=== PATIENT | female | born 1965 | race Hispanic/Latino ===

== ENCOUNTER 2025-04-11 09:28 | Inpatient (IN) | payer OTHER ==
[~2025-04-11] VITALS: Ht 160 cm; Wt 63.8 kg
[~2025-04-11 09:28] MED LIST: HYDROCODON-ACE1 EA10 PO
--- OUTSIDE RECORDS SUMMARY | 2025-04-11 09:36 | XMS ---
PreManage Notification: CATRACHO MARTIN Security Photo Print Specialist Events No recent Security Events currently on file CRITERIA MET - [address] in 90 Days CARE PROVIDERS -, [facility] Dentist: Vault Worker [facility] PHONE: [phone] -Luís- Dentist: Vault Worker [facility] PHONE: [phone] DEBORAH RIOS Nurse Practitioner: Acute Care Current PHONE: [phone] ELSA TUTTLE Nurse Practitioner: Family Schuyler Blanco PHONE: Unknown SRINIVAS TRAORE Nurse Practitioner: Gerontology Current PHONE: Unknown STEPHY OLSON Nurse Practitioner: Family Current PHONE: [phone] SHO VASQUEZ Internal Medicine Current PHONE: Unknown [facility]/Center: [facility] Current WORKERS CL[facility]IC \[facility] ([facility]) <UNAVAIL> PHONE: [phone] Itzel has no Care Guidelines for this patient. E.D. VISIT COUNT (12 MO.) 2 ANSLEY Manley [facility] 1 [facility] TOTAL 4 NOTE: Visits indicate total known visits. ED/UCC VISIT TRACKING (12 MO.) 04/11/2025 09:30 [facility] [place] TYPE: Emergency COMPLAINT: - [facility] DIAGNOSES: - Acute cystitis with hematuria - Pain in unspecified joint - Systemic inflammatory response syndrome (SIRS) of non-infectious origin without acute organ dysfunction - Unspecified abdominal pain - Arm Pain 02/26/2025 02:48 [facility] [place] TYPE: Emergency COMPLAINT: - LT ARM PAIN DIAGNOSES: - Cellulitis of right upper limb - Pain in right arm 02/25/2025 08:25 [facility] [place] TYPE: Emergency DIAGNOSES: - Pain in right shoulder - NUMBNESS INPATIENT VISIT TRACKING (12 MO.) 03/02/2025 16:44 [facility] TYPE: Surgery DIAGNOSES: - Acute cystitis with hematuria - Pain in unspecified joint - Systemic inflammatory response syndrome (SIRS) of non-infectious origin without acute organ dysfunction - Unspecified abdominal pain 02/26/2025 10:54 [facility] TYPE: Internal Medicine DIAGNOSES: - Acute cystitis with hematuria - Acute cystitis without hematuria - Bacteremia - Discitis, unspecified, cervical region - Other stimulant abuse, uncomplicated - Other streptococcal arthritis, right shoulder - Pain in right shoulder - Pain in unspecified joint - Polyarthritis, unspecified - Spinal stenosis, cervical region - Systemic inflammatory response syndrome (SIRS) of non-infectious origin without acute organ dysfunction - Thrombocytopenia, unspecified - Unspecified abdominal pain [email or web address]
[2025-04-11 10:24] LABS: MCH 32.2 PG (25.6-32.2); MCHC 33.8 g/dL (32.2-35.5); MCV 95.1 fL (79.4-94.8); RBC 4.94 M/uL (3.93-5.22)
[2025-04-11] MEDS ORDERED: PIPERACILLIN/TAZOBACTAM 4.5 GM in SODIUM CHLORIDE 0.9% 100 ML IV ONE (10:30)
[2025-04-11] MEDS ORDERED: SODIUM CHLORIDE 0.9% 1,500 ML IV PRN (10:30)
[2025-04-11] MEDS ORDERED: DAPTOmycin 500 MG/10 ML VIAL IV ONE (10:30)
[2025-04-11 10:38] LABS: INR 1.26 (0.80-1.30); PROTIME 15.4 Sec (11.2-14.2)
[2025-04-11 10:42] LABS: ALT (SGPT) 25.0 U/L (14-59); AST (SGOT) 27.0 U/L (15-37); GLOMERULAR FILTRATION RATE,EST 25.0 mL/min (>60); PROTEIN, TOTAL 7.3 g/dL (6.4-8.2); UREA NITROGEN 36.0 mg/dL (7-18)
[2025-04-11] MEDS ORDERED: OXYCODONE HCL5 M3 PO (10:48)
[2025-04-11] MEDS ORDERED: CEFDINIR300 MG PO (10:48)
[2025-04-11 11:06] LABS: CORONAVIRUS COVID-19 AG NEGATIVE (NEGATIVE)
[2025-04-11 11:31] LABS: LACTIC ACID, BLOOD 3.0 mmol/L (0.4-2.0)
[2025-04-11] MEDS ORDERED: SODIUM CHLORIDE 0.9% 1,000 ML IV PRN ×2 (12:00→14:15)
[2025-04-11 12:23] LABS: LACTIC ACID, BLOOD 4.2 mmol/L (0.4-2.0)
[2025-04-11 12:44] LABS: BLOOD/HGB, URINE SMALL (Negative); KETONE, URINE TRACE (Negative); LEUK ESTERASE, URINE NEGATIVE (negative); NITRITE, URINE NEGATIVE (negative)
[2025-04-11 12:49] LABS: EPITHELIAL CELLS, URINE SQUAMOUS 1+ /lpf (0-1+)
[2025-04-11 12:50] LABS: BACTERIA, URINE 1+ /hpf (negative); CASTS, URINE HYALINE 3+ \\lpf; CRYSTALS, URINE CALCIUM OXALATE 1+ (0-1+); REFLEX CULTURE, URINE No (No)
[2025-04-11] MEDS ORDERED: MORPHINE SULFATE 4 MG/ML VIAL IV ONE (14:15)
[2025-04-11] MEDS ORDERED: PANTOPRAZOLE SODIUM 40 MG/10 ML VIAL IV SCH (14:57)
[2025-04-11] MEDS ORDERED: ACETAMINOPHEN 325 MG TAB PO PRN (15:00)
[2025-04-11] MEDS ORDERED: HYDROmorphone HCL 1 MG/ML SYR IV PRN ×2 (15:00→19:30)
[2025-04-11] MEDS ORDERED: LACTATED RINGER'S 1,000 ML IV SCH (15:00)
[2025-04-11] MEDS ORDERED: PROCHLORPERAZINE EDISYLATE 10 MG/2 ML VIAL IV PRN (15:00)
--- NOTE | 2025-04-11 18:39 | NUR ---
REPORT RECIEVED FROM FERNANDO CABRERA VIA PHONE REPORT. PATIENT BROUGHT TO ROOM BY FERNANDO GIRON.
[2025-04-11 18:45] VITALS: BP 115/65
[2025-04-11] MEDS ORDERED: LIDOCAINE 2% VISCOUS 6 ML SYR TOP ONE (19:15)
[2025-04-11] MEDS ORDERED: VANCOMYCIN HCL 125 MG CAP PO SCH (19:15)
[2025-04-11 19:58] VITALS: BP 101/61
[2025-04-11 20:04] VITALS: BP 101/61
--- NOTE | 2025-04-11 20:06 | NUR ---
IN ROOM TO SEE PATIENT, ASSESSMENT COMPLETED. PATIENT REPORTS 6/10 PAIN, ABD DISTENSION AND TTP LUQ AND LLQ. IVF INFUSING WITHOUT DIFFICULTY, SCHEDULED MEDICATIONS ADMINISTERED PER ORDER. PATIENT DENIES NEEDS, CALL LIGHT IN REACH
--- NOTE | 2025-04-11 20:28 | NUR ---
REPORT GIVEN FROM FERNANDO CURTIS. PT LAYIN IN BED WITH EYES OPEN UNDER BLANKETS. A&O, IVF INFUSING WITHOUT DIFFICULTY. NO NEEDS IDENTIFIED AT THIS TIME. CALL LIGHT IN REACH.
--- NOTE | 2025-04-11 20:45 | NUR ---
REPORT GIVEN TO FERNANDO LAWSON. PATIENT TRANSFERRED TO CCU VIA STRETCHER.
[2025-04-11 20:57] VITALS: BP 123/77
[2025-04-11] MEDS ORDERED: HEParin SOD (PORCINE) 5,000 UNIT/ML SDV SUB-Q SCH (21:00)
[2025-04-11] MEDS ORDERED: MELATONIN 3 MG TAB PO PRN (21:00)
[2025-04-11 22:00] VITALS: BP 87/65
[2025-04-11 23:00] VITALS: BP 92/62
[2025-04-12] VITALS (27 sets, daily range): BP systolic 76–113; BP diastolic 50–78
[2025-04-12 00:29] LABS: BLOOD/HGB, URINE NEGATIVE (Negative); KETONE, URINE TRACE (Negative); LEUK ESTERASE, URINE NEGATIVE (negative); NITRITE, URINE NEGATIVE (negative)
[2025-04-12 00:42] LABS: BACTERIA, URINE 2+ /hpf (negative); CRYSTALS, URINE NONE SEEN (0-1+); EPITHELIAL CELLS, URINE SQUAMOUS 1+ /lpf (0-1+)
[2025-04-12 00:43] LABS: REFLEX CULTURE, URINE Yes (No)
[2025-04-12 05:27] LABS: BASOPHILS 0.3 % (0.1-1.2); EOSINOPHILS 0 % (0.7-5.8); LYMPHOCYTES 4.7 % (19.3-51.7); MCH 31.9 PG (25.6-32.2); MCHC 34.0 g/dL (32.2-35.5); MCV 94.0 fL (79.4-94.8); MONOCYTES 8.9 % (4.7-12.5); NEUTROPHILS 84.7 % (34.0-71.1); RBC 4.01 M/uL (3.93-5.22)
[2025-04-12 05:44] LABS: AST (SGOT) 20.0 U/L (15-37); GLOMERULAR FILTRATION RATE,EST 67.0 mL/min (>60); PROTEIN, TOTAL 5.3 g/dL (6.4-8.2); UREA NITROGEN 28.0 mg/dL (7-18)
[2025-04-12 06:07] LABS: ALT (SGPT) 19.0 U/L (14-59)
--- NOTE | 2025-04-12 06:16 | NUR ---
This RN spoke w/ Dr. Lemus with pt updates. Pt afebrile, tachy w/ HR 100's, soft BPs, MAP ~ 65. WBC 32.9, Lactic acid 1.1. Pt UOP < 30ml/hr, 1L bolus of LR ordered per Dr. Lemus.
[2025-04-12] MEDS ORDERED: LACTATED RINGER'S 1,000 ML IV ONE ×2 (06:30→21:00)
--- NOTE | 2025-04-12 06:52 | NUR ---
NOTIFIED OF CRITICAL WBC, THAT ARE UNCHANGED FROM LAST LAB DRAW AND THAT LACTIC IS NOW 1.1, ALSO NOTIFIED THAT CAME IN AND SEEN PATIENT LAST NIGHT.
--- NOTE | 2025-04-12 09:03 | NUR ---
IN TO SEE PATIENT AND PLAN OF CARE BEING DISCUSSED. LAZO EMPTIED FOR 100 ML AT THIS TIME. 1 L LR BOLUS FINISHED AT 0730. PT REPORTS FEELING BETTER OVERALL BUT STILL TIRED. ABD IS SLIGHTLY DISTENDED, SOFT, TENDER TO TOUCH X4 QUADS.
[2025-04-12] MEDS ORDERED: PHARMACY RENAL DOSE ADJUSTMENT 1 DOSE MISC PO SCH (12:00)
--- NOTE | 2025-04-12 15:31 | NUR ---
DR. ARIZA IN TO SEE PATIENT AROUND 1400 AND PLAN OF CARE DISCUSSED. PER DR. ARIZA, PATIENT SHOWING SIGNS OF IMPROVEMENT. PT CAN HAVE MINIMAL CLEAR LIQUIDS AT THIS TIME. PT'S FAMILY IN ROOM AND ALSO GIVEN UPDATE. PT HAS BEEN ABLE TO TAKE PO VANCO W/O DIFFICULTY.
--- NOTE | 2025-04-12 16:57 | NUR ---
PATIENT HELPED UP TO CHAIR AFTER GIVEN A BED BATH. PT HAD LOOSE LIQUID BM UNDER HER BUT ONLY A SMALL AMOUNT. PT GIVEN 1 MG PRN DILAUDID FOR 4/10 PAIN. PATIENT'S AND FRIENDS IN ROOM. NEW IV PLACED IN RIGHT FOREARM AFTER LEFT AC HURTING PATIENT UPON FLUSHING. IVF CONTINUE AT 125 ML/HR AND URINE OUTPUT HAS AVERAGED 35 ML/HR. PT ALLOWED TO HAVE SMALL AMOUNTS OF CLEAR LIQUIDS AND TOLERATING THIS WITHOUT NAUSEA OR PAIN. PT RESTING IN CHAIR NOW VISITING WITH FRIENDS AND HAS CALL LIGHT WITHIN REACH. WILL CONTINUE TO MONITOR.
[2025-04-12] MEDS ORDERED: BENZONATATE200 MG PO (17:04)
--- NOTE | 2025-04-12 17:06 | NUR ---
MED REC COMPLETE
--- NOTE | 2025-04-12 20:58 | NUR ---
This RN spoke w/ Dr. Larkin regarding pt UOP 5ml this hour, soft BP, 83/50 MAP 62, T 99.1F. 1L bolus LR ordered now per MD. If MAP drops below 65 again, draw stat lactic acid, await result before giving an additional 1L bolud of LR. If lactic acid is elevated, report result to Dr. Larkin.
[2025-04-13] VITALS (21 sets, daily range): BP systolic 83–107; BP diastolic 47–66
[2025-04-13 05:14] LABS: BASOPHILS 0.2 % (0.1-1.2); EOSINOPHILS 0.4 % (0.7-5.8); LYMPHOCYTES 6.1 % (19.3-51.7); MCH 32.1 PG (25.6-32.2); MCHC 33.9 g/dL (32.2-35.5); MCV 94.7 fL (79.4-94.8); MONOCYTES 8.2 % (4.7-12.5); NEUTROPHILS 83.1 % (34.0-71.1); RBC 3.40 M/uL (3.93-5.22)
[2025-04-13 05:39] LABS: ALT (SGPT) 11.0 U/L (14-59); AST (SGOT) 20.0 U/L (15-37); GLOMERULAR FILTRATION RATE,EST 102.0 mL/min (>60); PROTEIN, TOTAL 4.6 g/dL (6.4-8.2); UREA NITROGEN 17.0 mg/dL (7-18)
[2025-04-13 05:44] LABS: LACTIC ACID, BLOOD 0.8 mmol/L (0.4-2.0)
--- NOTE | 2025-04-13 09:00 | NUR ---
PT INCONTENT OF STOOL, CHANGED AND THEN UP TO THE COMMODE HAD MORE STOOL AND PLACED ATTENDS, PT INTO WORK WITH PT AND DR VELA INTO SEE PT ALSO AT THIS TIME. PT CURRENTLY IN BED CALL LIGHT WITHIN REACH, LINDA SIBLEY AND SEVEN-UP GIVE. KPT STATES "I FEEL MUCH BETTER TODAY, MY PAIN IS GONE".
--- NOTE | 2025-04-13 11:16 | NUR ---
PT APPEARS TO BE SLEEPING AT THIS TIME.
--- NOTE | 2025-04-13 12:10 | NUR ---
PT UP IN THE CHAIR AT THIS TIME. FEELING BETTER, NO BM NOTED AT THIS TIME.
--- NOTE | 2025-04-13 13:00 | NUR ---
PT UP IN THE CHAIR FOR LUNCH, PT EDUCATION GIVEN AND INTO VISIT AT THIS TIME. ANSWERED QUESTION FOR . THEN PT WANTS TO GO BACK TO BED.
--- NOTE | 2025-04-13 13:51 | CONS ---
[facility] [address], [place] [address] Signed DATE OF CONSULTATION: REASON FOR ADMISSION: Severe C difficile colitis. HISTORY OF PRESENT ILLNESS: This 59-year-old woman is an amazingly poor historian. It is ultimately discovered that she had a septic joint in the right shoulder, for which she began antibiotic therapy several weeks ago. She has been seen in [facility], and elsewhere apparently and somewhere along the way also had a urinary tract infection. She lives in [place] it is noted. She does note that her initial presentation was in February where she had pain in her right shoulder. Evaluation at [facility] was undertaken and on February 23, 6 weeks ago, underwent right shoulder operation of some type and was admitted to the hospital for 3 weeks of antibiotics. She went to rehab facility for prolonged course of IV antibiotics and was discharged early with oral antibiotics. She does describe a history of urinary tract infection (but notably denies any pneumaturia). Her rehab facility was [facility] in [place], [place]. She denies or at least does not know of her own primary care provider. She presented to the emergency room and was evaluated by Dr. Mercado today. She is complaining of body aches, weakness, fatigue and shortness of breath. She had some abdominal pain as well. Evaluation in the emergency room by Dr. Mercado noted her to have an elevated lactic acid level of 3.6, a urinalysis which seems relatively normal, urine bacteria 1+. Subsequent lactic acid after administration of fluids increased to 4.2, later down to 3.0. White count was quite astounding at 32.98 with the hematocrit of 47, creatinine elevated at 2.22, and platelets of 226,000. Liver enzymes were normal. CT scan of the abdomen showed pancolitis. Given the extent of her antibiotic therapy over the past several weeks, C difficile was assessed and found to be positive. She recently was noted on CT scan to have a nonocclusive thrombus of the right ovarian vein. She was admitted directly to the intensive care unit for C difficile enterocolitis with oral vancomycin and intravenous Flagyl. Consultation was undertaken given the severity of her apparent C difficile colitis. PAST MEDICAL HISTORY: Notable for substance abuse issues in the past. I am uncertain just what medications or drugs were being used. SOCIAL HISTORY: She is and lives in [place], [place]. Electronically Signed By: WILLIAM ARIZA MD 04/13/25 1351 PATIENT NAME: CATRACHO MARTIN CONSULTATION DATE OF : 61 REPORT #: [id number] PHYSICIAN: WILLIAM ARIZA MD PCP: NO PRIMARY CARE PHYSICIAN REPORT IS CONFIDENTIAL AND NOT TO BE RELEASED WITHOUT AUTHORIZATION [facility] [address], [place] [address] Signed REVIEW OF SYSTEMS: Denies any chest pain or shortness of breath at this time. Has had no hemoptysis or blood per rectum and no hematemesis. PHYSICAL EXAMINATION: GENERAL: This is a pleasant woman who essentially does not look systemically toxic. VITAL SIGNS: Her most recent temperature at 2056 was 98.0, pulse 114, blood pressure 123/77, O2 saturation 96% on room air. More recently, blood pressure is 87/65 with a pulse of 117. HEAD AND NECK: She does not look particularly systemically toxic at this time. Trachea is midline. CHEST: Clear. HEART: Regular without murmur. ABDOMEN: Does show mild diffuse tenderness. There are no peritoneal signs proper. EXTREMITIES: Show no clubbing, cyanosis, or edema. LAB STUDIES: Earlier in the day showed a white count of 32.96. I have reviewed her CT scan in detail. ASSESSMENT: The patient has Clostridium difficile enterocolitis, which is a significant and serious diagnosis. I did discuss all this with her. She is under current appropriate medical therapy, but if there is no sign of improvement or particularly if there is worsening as manifested by persistent hypotension, lactic acidosis, tachycardia, and generalized systemic toxicity, an operative intervention would be offered. Two basic operative approaches might be appropriate in her case. Firstly, would be total colectomy with end-ileostomy to later have takedown of the ileostomy to become an ileoproctostomy. Such an operation is rather extensive and is often associated with high mortality based on the underlying systemic toxicity of the colitis. A benefit of course is that the offending organism will have been effectively eliminated. Another option is a diverting loop ileostomy with infusion perpetually through the efferent limb of vancomycin. This appropriate if the more extensive operation of colectomoy is deemed unlikely to be tolerated. IT would be considered as well to avoid extenstive resection of colon as well. . I discussed all this in detail with the patient with use of the whiteboard and so on. PLAN: Electronically Signed By: WILLIAM ARIZA MD 04/13/25 1351 PATIENT NAME: CATRACHO MARTIN CONSULTATION DATE OF : 61 REPORT #: [id number] PHYSICIAN: WILLIAM ARIZA MD PCP: NO PRIMARY CARE PHYSICIAN REPORT IS CONFIDENTIAL AND NOT TO BE RELEASED WITHOUT AUTHORIZATION [address] [address] Signed We will continue to monitor her therapy and response to it over the next 12 to 24 hours. If the problem does not reverse itself reasonably, then at that time, stronger consideration for operative intervention would be made. MD NEIL Puga/OMER /[id number] cc: Dr. Rogelio Larkin Copies: ~ Electronically Signed By: WILLIAM ARIZA MD 04/13/25 1351 PATIENT NAME: CATRACHO MARTIN CONSULTATION DATE OF : 61 REPORT #: [id number] PHYSICIAN: WILLIAM ARIZA MD PCP: NO PRIMARY CARE PHYSICIAN REPORT IS CONFIDENTIAL AND NOT TO BE RELEASED WITHOUT AUTHORIZATION
--- NOTE | 2025-04-13 14:02 | NUR ---
DR ARIZA INTO SEE PT AT THIS TIME.
--- NOTE | 2025-04-13 14:58 | NUR ---
PT BACK TO BED AND IS RESTING AT THIS TIME.
--- NOTE | 2025-04-13 16:00 | NUR ---
PT WITY EYES CLOED ASSESSMENT COMPLETED, DENIES PAIN AT THIS TI9ME WHEN ASK IF SHE IS COMFORTABLE. "YES" 1700 PT UP FOR DINNER, CLEAR LIQUIDS TRAY.
--- NOTE | 2025-04-13 18:14 | NUR ---
ppt finished clear liquid tray and then brushed teeth washed her face and decided it was time to go to bed. Pt states she feels better, but not back to normal. Helped pt turn off tv and call light within reach and found tv remote and placed on bedside stand.
--- NOTE | 2025-04-13 19:30 | NUR ---
RECEIVED REPORT FROM DAY SHIFT. PT RESTING WITH EYES CLOSED, ALLOWED PT TO REST AT THIS TIME. CALL LIGHT WITHIN REACH.
--- NOTE | 2025-04-13 20:30 | NUR ---
PT CALL LIGHT ON, PT APPEARS IN PAIN/TEARFUL AND HOLDING ABDOMEN. PT REPORTS 4/10 PAIN ALL OVER STOMACH, DENIES NAUSEA. PRN MEDS GIVEN - SEE MAR. SCDS PLACED ON PATIENT, FRESH ICE WATER PROVIDED. VS STABLE, AFEBRILE. DENIES ANY OTHER NEEDS. CALL LIGHT WITHIN REACH.
--- NOTE | 2025-04-13 22:46 | NUR ---
PT SLEEPING, IV ABX STARTED. IV FLUIDS INFUSING ORDERED. PT STATES PAIN IMPROVED TO 2/10, STATES SHE IS COMFORTABLE, DENIES NAUSEA. LAZO CATH DRAINED, 300ML CATHY URINE. DENIES ANY NEEDS, CALL LIGHT WITHIN REACH, PT TAKING SIPS OF WATER, WHICH IS FRESH AT BEDSIDE.
[2025-04-14] VITALS (21 sets, daily range): BP systolic 81–107; BP diastolic 51–76
[2025-04-14 05:48] LABS: BASOPHILS 0.2 % (0.1-1.2); EOSINOPHILS 1.0 % (0.7-5.8); LYMPHOCYTES 11.0 % (19.3-51.7); MCH 31.7 PG (25.6-32.2); MCHC 33.4 g/dL (32.2-35.5); MCV 94.7 fL (79.4-94.8); MONOCYTES 10.5 % (4.7-12.5); NEUTROPHILS 75.0 % (34.0-71.1); RBC 3.41 M/uL (3.93-5.22)
[2025-04-14 06:09] LABS: GLOMERULAR FILTRATION RATE,EST 113.0 mL/min (>60); UREA NITROGEN 7.0 mg/dL (7-18)
--- NOTE | 2025-04-14 06:23 | NUR ---
PT RESTING IN BED, IV FLUID BAG CHANGED, IV ABX INFUSING. PT REQUESTING SOMETHING FOR 3/10 PAIN, PRN TYLENOL GIVEN. ASSISTED PATIENT TO TURN ONTO (L) SIDE, PT STATES SHE FEELS LIKES SHE IS IN HEAVEN NOW. LAZO EMPTIED. ALL PT CARE NEEDS MET, CALL LIGHT WITHIN REACH. SCDS REMAIN ON PATIENT. PT ALLOWED TO SLEEP.
--- NOTE | 2025-04-14 08:06 | NUR ---
BREAKFAST TRAY PROVIDED AND VITAL SIGNS TAKEN. PT RESTING, DENIES ANY NEEDS AT THIS TIME. CALL LIGHT IN REACH
[2025-04-14] MEDS ORDERED: POTASSIUM CHLORIDE 10 MEQ TABCR PO ONE (08:15)
[2025-04-14] MEDS ORDERED: POTASSIUM CHLORIDE 40 MEQ,LIDOCAINE HCL 1% 40 MG in DEXTROSE 5% 250 ML IV ONE (08:30)
[2025-04-14] MEDS ORDERED: LACTATED RINGER'S 1,000 ML IV ONE (08:45)
--- NOTE | 2025-04-14 08:57 | NUR ---
PATIENT RESTING IN BED AT THIS TIME. 1 L BOLUS OF LR STARTED. PT ABLE TOT DENISHA PO MEDS W/O DIFFICULTY. PT STATES HER MOM IS COMING TO VISIT TODAY. HYPERACTIVE BOWEL SOUNDS. CLEAR YELLOW URINE IN LAZO. PAIN IS 3/10.
--- NOTE | 2025-04-14 10:05 | NUR ---
ASSISTED PT FROM CHAIR TO BED. APPROX 50% OF LIQUID BREAKFAST CONSUMED. PT TOLERATED WELL, DENIES PAIN.
--- NOTE | 2025-04-14 11:28 | NUR ---
PATIENT'S FAMILY IN ROOM AND VISITING WITH PATIENT. ISOLATION PRECAUTIONS EXPLAINED TO PATIENT. OT IN ROOM WELL AND PT HAS ALREADY BEEN IN ROOM WORKING WITH HER. PT WAS UP TO CHAIR EARLIER. BP STILL MILDLY LOW- 89/58 (68).
--- NOTE | 2025-04-14 12:02 | NUR ---
Spoke with Martha. She is tearful. States she had surgery and required a stay in [facility] for 3 weeks, then to [facility] in [place] for 2 weeks. Has not really felt well since surgery. She lives with her spouse and adult children. She does not use any DME, except a shower chair. Has one step into the home. Spouse is completing the data entry manager. Adult children also help. Pt plans on dc to home when medically cleared. Pt is tearful as she feels she has been ill for such a lengthy time. Denies financial or safety concerns. Home with family when medically cleared.
--- NOTE | 2025-04-14 12:42 | NUR ---
UR CLINICAL REVIEW: MCG-PER MCG REVIEW MEET INPT FOR COLITIS WITH NEED FOR IV ABX, IVF AND SERIAL LABS [facility] INPT 04/11/25 @ 4603 ORDER MATCHES REG CLINICALS FAXED TO [facility] FOR AUTH REVIEW DISCHARGE TO HOME WHEN MEDICALLY STABLE 04/15/25 DC
[2025-04-14] MEDS ORDERED: ALBUMIN HUMAN 25% 100 ML BTL IV ONE (16:15)
--- NOTE | 2025-04-14 20:27 | NUR ---
PATIENT CRYING. MOANING GRIMACING, REPORTING PAIN 4/10, DILAUDID PRN ADMINISTERED WELL PO TYLENOL. PATIENT RESP RATE 34/MIN
--- NOTE | 2025-04-14 20:48 | NUR ---
PATIENT ASSESSMENT COMPLETE. PATIENT HAD LARGE MUCUS/GREEN/BROWN MIX STOOL. PATIENT HAS GOOD BED MOBILITY SHE IS ABLE TO TURN FOR CLEANING AND CHANGEING, LAZO CARE PROVIDED. PATIENT REPORTS SHE IS READY FOR SLEEP. REPOSITIONED WITH PILLOWS. SHE REPORTS SHE IS NOW COMFORTABLE. CALL LIGHT REACH, SCDS ON.
[2025-04-15] VITALS (20 sets, daily range): BP systolic 11–118; BP diastolic 48–101
--- NOTE | 2025-04-15 01:35 | NUR ---
PATIENT ALERT TO VOICE FOR SCHEDULED VACOMYCIN DOSE. ASSESSMENT COMPLETE, NO NEW CONCERNS. PATIENT HAS NO REQUESTS AT THIS TIME. SHE HAS Q.S. URINE OUT.
--- NOTE | 2025-04-15 02:40 | NUR ---
CALLED TO NOTIFY OF PATIENTS B/P SOFT LAST TAKEN WITH MAP OF 63. PATIENT IS PRODUCING Q.S. URINE OUT. NEW ORDER FOR 500ML BOLUS AT THIS TIME. SAID HE WANTS HER MAP TO BE >60, "60-65 IS FINE."
[2025-04-15] MEDS ORDERED: LACTATED RINGER'S 500 ML IV ONE (02:45)
[2025-04-15 06:28] LABS: BASOPHILS 0.3 % (0.1-1.2); EOSINOPHILS 2.0 % (0.7-5.8); LYMPHOCYTES 14.8 % (19.3-51.7); MCH 31.5 PG (25.6-32.2); MCHC 32.5 g/dL (32.2-35.5); MCV 96.8 fL (79.4-94.8); MONOCYTES 14.2 % (4.7-12.5); NEUTROPHILS 65.8 % (34.0-71.1); RBC 3.46 M/uL (3.93-5.22)
[2025-04-15 06:38] LABS: GLOMERULAR FILTRATION RATE,EST 109.0 mL/min (>60); UREA NITROGEN 3.0 mg/dL (7-18)
--- NOTE | 2025-04-15 07:03 | NUR ---
PATIENT HAS SLEPT WELL OVER SHIFT IN BETWEEN CARES, SHE HAS HAD THREE LARGE BM. SHE HAD SIGNIFICANT PAIN WITH CRYING, GROANING, AND RESP RATE 34/MIN, DILAUDID PRN ADMINISTERED WELL TYLENOL PRN. SHE HAD LOW B/P CALLED AND WAS ORDER TO GIVE 500ML BOLUS, THIS IS DONE, B/P IMPROVED. PATIENT URINE IS NOTED TO BE DARK TEA COLOR THIS AM, ALSO NOTED SIGNIFICANT EDEMA FROM ANKLES TO HIPS AND LABIA/PELVIC AREA. SHE IS UP TO RECLINER THIS AM AND BED LINENS CHANGED. PROVIDED ACTIVITY BOOKS FOR HER AT RECLINER SIDE.
--- NOTE | 2025-04-15 09:38 | NUR ---
Spoke with Martha. She still is not feeling well. She does feel her diarrhea has slowed down. No needs from DM today.
[2025-04-15] MEDS ORDERED: ALBUMIN HUMAN 25% 100 ML BTL IV ONE (14:15)
--- NOTE | 2025-04-15 19:45 | NUR ---
ROUDNING ON PATIENT, BROUGHT ICE WATER FOR HER APPLE JUICE FROM DINNER, FRESH ICE WATER. PATIENT'S SPOUSE AT BEDSIDE VISITING. PATIENT ADMINISTERED HS MEDICATIONS AND PRN TYLENOL FOR BASE PAIN MANAGEMENT. PATIENT REPOSITIONED AND BOOSTED UP IN BED. SHE REPORTS NO OTHER NEEDS AT THIS TIME.
--- NOTE | 2025-04-15 21:04 | NUR ---
PATIENT SPOUSE LEFT FOR THE NIGHT, PATIENT CALLED. THIS RN INTO ROOM TO ASSIST PATIENT IN CLEAN UP AFTER LARGE SOFT/LIQUID BM. PATIENT ASKED TO HAVE LIGHTS AND TV TURNED OFF SHE REPORTS NO SIGNIFICANT PAIN AT THIS TIME. SHE SAID SHE IS TIRED AND IS READY TO SLEEP. EDUCATION ON MEDICATIONS GIVEN TO PATIENT AND HER SPOUSE IN REFERENCE TO VANCOMYCIN AND ILLNESS, PROGRESSION OF CARE PLAN. NO FURTHER REQUESTS/QUESTIONS/NEEDS AT THIS TIME. CALL LIGHT IN REACH.
--- NOTE | 2025-04-15 22:00 | NUR ---
PATIENT RESTING IN BED, EYES CLOSED, RESPIRATIONS REGULAR. PATIENT ALERT TO RN IN ROOM TO ADMINISTER SCHEDULED ABX. SHE REPORTS NO NEEDS AT THIS TIME.
[2025-04-16] VITALS (12 sets, daily range): BP systolic 81–110; BP diastolic 49–71
--- NOTE | 2025-04-16 01:19 | NUR ---
PATIENT CALLED NURSES STATION TO REPORT HAVING HAD BM, THIS RN INTO PATIENTS ROOM TO ASSIST WITH CLEANING AND CHANGING. PATIENT HAS NO FURTHER REQUESTS OR NEEDS AT THIS TIME.
--- NOTE | 2025-04-16 05:30 | NUR ---
PATIENT CALLED FOR ASSISTANCE WITH INCONT, STOOL. THIS RN INTO ASSIST, ASSESSMENT COMPLETE. NO NEW CONCERNS THIS AM.
--- NOTE | 2025-04-16 05:38 | NUR ---
CALLED FOR AM LAB ORDERS. ORDERS RECEIVED FOR CMP, CBC AND MAGNESIUM LABS.
[2025-04-16 05:54] LABS: BASOPHILS 0.8 % (0.1-1.2); EOSINOPHILS 2.9 % (0.7-5.8); LYMPHOCYTES 23.3 % (19.3-51.7); MCH 31.8 PG (25.6-32.2); MCHC 32.9 g/dL (32.2-35.5); MCV 96.6 fL (79.4-94.8); MONOCYTES 16.1 % (4.7-12.5); NEUTROPHILS 52.6 % (34.0-71.1); RBC 3.55 M/uL (3.93-5.22)
[2025-04-16 06:09] LABS: ALT (SGPT) 8.0 U/L (14-59); AST (SGOT) 24.0 U/L (15-37); GLOMERULAR FILTRATION RATE,EST 110.0 mL/min (>60); PROTEIN, TOTAL 4.2 g/dL (6.4-8.2); UREA NITROGEN 2.0 mg/dL (7-18)
[2025-04-16] MEDS ORDERED: POTASSIUM CHLORIDE 10 MEQ TABCR PO ONE (06:30)
[2025-04-16] MEDS ORDERED: MAGNESIUM SULFATE 2 GM/50 ML BAG IV ONE (06:30)
--- NOTE | 2025-04-16 06:31 | NUR ---
NEW ORDERS FROM FOR POTASSIUM AND MAGNESIUM REPLACEMENT THIS AM.
--- NOTE | 2025-04-16 08:14 | NUR ---
AM ASSESSMENT COMPLETE - PT WAKES EASILY UPON ENTERING ROOM. DENIES PAIN OR NAUSEA AT THIS TIME. ATTENDS C/D/I. LAZO DRAINING CONC URINE. EDEMA NOTED BLE, PT STATES IMPROVING. BOWEL TONES ACTIVE. PT WISHES FOR ADVANCE IN DIET. CALL LIGHT IN REACH.
--- NOTE | 2025-04-16 09:14 | NUR ---
PT USES CALL LIGHT TO REPORT INC OF STOOL. PT ABLE TO ROLL SIDE TO SIDE TO CLEAN. NEW ATTENDS PLACED, LAZO CARE COMPLETE. PT RESTING IN BED WATCHING TV. AGREES WITH PLAN TO GET UP TO CHAIR LATER THIS AM.
--- NOTE | 2025-04-16 09:39 | NUR ---
UR DC REVIEW: NO BARRIERS TO DC NOTED DISCHARGE TO HOME WITH FAMILY WHEN STABLE ADD PER MD 04/17/25 NO ACTIONS REQUIRED
[2025-04-16] MEDS ORDERED: LACTOBACILLUS RHAMNOSUS GG 1 EACH CAP PO SCH (10:12)
--- NOTE | 2025-04-16 10:13 | NUR ---
PT USES CALL LIGHT TO REPORT HEARTBURN THAT STARTED AFTER BREAKFAST. CALL TO MD - ORDER ENTERED FOR MALOX AND PROBIOTIC.
[2025-04-16] MEDS ORDERED: MAGNESIUM HYDROXIDE/AL HYDROX 30 ML CUP PO PRN (10:15)
--- NOTE | 2025-04-16 11:05 | NUR ---
Spoke with Martha. She denies needs. Feeling better today. States she is having less BMS. OT asked if we can get access to her SNF orders from [facility]. Pt would like to have therapy on her shoulder. I called and left a message with Sapna at [facility] to see if they could send their orders from her surgeon for therapy.
--- NOTE | 2025-04-16 11:30 | NUR ---
PT UP TO BED SIDE CHAIR WITH OT. TO BATHROOM TO PREFORM ADL'S. 2 LIQUID BM - REMAINS GREEN/YELLOW LIQUID. CLEAN ATTENDS PLACED. PT TOLERATING MOVEMENT WITH SOME FATIGUE, BALANCE STEADY, STANDBY ASSIST.
--- NOTE | 2025-04-16 12:55 | NUR ---
PT TOLERATING CRACKERS WITH CLEAR LIQ TRAY - VS STABLE. URINE OUTPUT POOR IN LAZO CATH, CONCENTRATED.
--- NOTE | 2025-04-16 13:34 | NUR ---
PT BACK TO BED FROM CHAIR, STANDBY ASSIST WITH LINES/TUBES. CALL LIGHT IN REACH. FRESH WATER AND JUICE PROVIDED.
--- NOTE | 2025-04-16 15:15 | NUR ---
PT INC OF STOOL IN ATTENDS. CLEANED AND NEW ATTENDS ON WITH PT ABLE TO ROLL SELF IN BED SIDE TO SIDE. URINE OUTPUT REMAINS POOR 180 OUT THIS SHIFT . ATTEMPT TO CALL MADE.
[2025-04-16] MEDS ORDERED: ALBUMIN HUMAN 25% 100 ML BTL IV ONE (17:00)
[2025-04-16] MEDS ORDERED: FUROSEMIDE 20 MG/2 ML VIAL IV ONE (17:00)
--- NOTE | 2025-04-16 17:09 | NUR ---
PT POOR URINE OUTPUT AND EDEMA DISCUSSED WITH MD AT RN STATION. ORDERS ENTERED FOR ALBUMIN AND LASIX.
[2025-04-16 20:19] LABS: GLOMERULAR FILTRATION RATE,EST 108.0 mL/min (>60); UREA NITROGEN 1.0 mg/dL (7-18)
[2025-04-17] VITALS (8 sets, daily range): BP systolic 93–106; BP diastolic 56–67
--- NOTE | 2025-04-17 07:03 | NUR ---
REPORT RECEIVED FROM RECREATIONAL AIDE FERNANDO LAWSON.
--- NOTE | 2025-04-17 07:24 | NUR ---
PATIENT IS LYING IN BED WITH EYES CLOSED AND RESPIRATIONS ARE EVEN AND UNLABORED. HEART MONITOR REMAINS IN PLACE AND THE PATIENT IS IN SINUS RHYTHM. CALL LIGHT AND PERSONAL BELONGINGS ARE WITHIN REACH.
--- NOTE | 2025-04-17 09:10 | NUR ---
PATIENT IS LYING IN BED WITH EYES OPEN AND RESPIRATIONS ARE EVEN AND UNLABORED. BREAKFAST TRAY REMOVED AT THIS TIME. BLINDS IN THE ROOM OPENED. FULL ASSESSMENT COMPLETE AND DOCUMENTED IN THE CHART. LAZO CATHETER WITH CONCENTRATED URINE NOTED IN THE LAZO BAG. PATIENT IS ALERT AND ORIENTED TIMES FOUR. IV SITE FLUSHED WITH 10 ML NORMAL SALINE AND IS SALINE LOCKED. IV DRESSING IS CLEAN, DRY, AND INTACT. PATIENT WITH NO COMPLAINTS OF PAIN OR NAUSEA. PATIENT IS ON A LOW FIBER DIET. BOWEL TONES ARE ACTIVE IN ALL FOUR QUADRANTS. ABDOMEN IS FIRM AND DISTENDED. PATIENT IS ON ROOM AIR AND LUNG SOUNDS ARE CLEAR THROUGHOUT. CARDIACF WITH NORMAL S1 AND S2 ON AUSCULTATION. PATIENT IS ON THE HEART MONITOR AND IN SINUS RHYTHM. 1+ PITTING EDEMA NOTED IN THE BLE. PATIENT STATED NO FURTHER NEEDS AT THIS TIME. GRAPE JUICE PROVIDED PER PATIENT REPORT. CALL LIGHT AND PERSONAL BELONGINGS ARE WITHIN REACH.
--- NOTE | 2025-04-17 09:50 | NUR ---
PT NOT AVAILABLE FOR VISIT. PROVIDED PRAYER.
--- NOTE | 2025-04-17 10:10 | NUR ---
PT CALLED, REPORTING SHE HAD HAD A BOWEL MOVEMENT. THIS RN AND CLOTILDE RN IN ROOM TO ASSIST PT. PT REPORTED TO FERNANDO MABRY, THAT SHE IS UNABLE TO TELL WHEN SHE IS GOING TO HAVE A BM. REDNESS NOTED TO PT'S PERIAREA AND LOWER PART OF BUTTOCKS; BARRIER CREAM APPLIED. CATHETER CARE COMPLETE AT THIS TIME. BED BATH COMPLETED AND SHOWER CAP APPLIED. PT MOVED TO CHAIR AND PERSONAL BELONGINGS PUT WITHIN REACH. COMPLETE BED CHANGE DONE AT THIS TIME. PT STATED NO FURTHER NEEDS AT THIS TIME. CALL LIGHT AND PERSONAL BELONGINGS ARE WITHIN REACH.
[2025-04-17 10:38] LABS: BASOPHILS 0.4 % (0.1-1.2); EOSINOPHILS 1.7 % (0.7-5.8); LYMPHOCYTES 19.0 % (19.3-51.7); MCH 32.1 PG (25.6-32.2); MCHC 33.2 g/dL (32.2-35.5); MCV 96.9 fL (79.4-94.8); MONOCYTES 16.2 % (4.7-12.5); NEUTROPHILS 60.4 % (34.0-71.1); RBC 3.92 M/uL (3.93-5.22)
[2025-04-17 10:57] LABS: ALT (SGPT) 15.0 U/L (14-59); AST (SGOT) 45.0 U/L (15-37); GLOMERULAR FILTRATION RATE,EST 106.0 mL/min (>60); PROTEIN, TOTAL 4.5 g/dL (6.4-8.2); UREA NITROGEN 2.0 mg/dL (7-18)
--- NOTE | 2025-04-17 11:30 | NUR ---
PT CALLED REPORTING SHE HAD HAD A BOWEL MOVEMENT IN CHAIR. PT CLEANED AND MOVED TO BED. FRESH BARRIER CREAM APPLIED, AND CATHETER CARE COMPLETED AT THIS TIME. PT STATED NO FURTHER NEEDS AT THIS TIME. CALL LIGHT AND PERSONAL BELONGINGS ARE WITHIN REACH.
--- NOTE | 2025-04-17 12:13 | NUR ---
FULL ASSESSMENT COMPLETE AND DOCUMENTED IN CHART. REDDENED AREA AND SPOTTED RASH NOTED TO SHAHEEN AREA AND UPPER THIGHS. BARRIER CREAM APPLIED. SCAR ON ABDOMEN NOTED WELL. NO OTHER CHANGES FROM 0800 ASSESSMENT. PT DENIES ANY NEEDS AT THIS TIME. CALL LIGHT AND PERSONAL BELONGINGS WITHIN REACH. LUNCH TRAY DELIVERED AT THIS TIME.
--- NOTE | 2025-04-17 12:25 | NUR ---
NOTIFIED OF THE POTASSIUM OF 3.3. GAVE TELEPHONE ORDER FOR 40 MEQ PO KCL- ONCE. GAVE ORDER FOR LABS AND A MAGNESIUM AT 1400. WITH NO FURTHER ORDERS AT THIS TIME. CALL ENDED.
[2025-04-17] MEDS ORDERED: POTASSIUM CHLORIDE 10 MEQ TABCR PO ONE (12:30)
--- NOTE | 2025-04-17 13:21 | NUR ---
NOTIFIED OF PATIENT URINE OUTPUT BEING 125 ML FOR THIS RN SHIFT AND CONCENTRATED. MD HAVE VERBAL ORDER AT THIS TIME FOR A 500 ML BOLUS ONCE. MD WITH NO FURTHER ORDERS AT THIS TIME.
[2025-04-17] MEDS ORDERED: LACTATED RINGER'S 1,000 ML IV ONE (13:30)
--- NOTE | 2025-04-17 14:00 | NUR ---
IV LR BOLUS STARTED AT THIS TIME. IV SITE REMAINS CLEAN, DRY, AND INTACT. PATIENT CLEANED UP FROM HAVING A BM. SHAHEEN CARE AND LAZO CARE COMPLETE AT THIS TIME. PATIENT TOLERATED WELL. PATIENT REFUSED PHYSICAL THERAPY . PATIENT STATED NO FURTHER NEEDS AT THIS TIME. CALL LIGHT AND PERSONAL BELONGINGS ARE WITHIN REACH.
[2025-04-17 15:02] LABS: ALT (SGPT) 16.0 U/L (14-59); AST (SGOT) 45.0 U/L (15-37); GLOMERULAR FILTRATION RATE,EST 107.0 mL/min (>60); PROTEIN, TOTAL 4.5 g/dL (6.4-8.2); UREA NITROGEN 2.0 mg/dL (7-18)
--- NOTE | 2025-04-17 15:12 | NUR ---
PT LAYING IN BED WITH EYES CLOSED, REPORTING 4/10 ABDOMINAL PAIN. PAIN MEDICATIONS ADMINISTERED PER THE EMAR. ASSESSMENT COMPLETE AND DOCUMENTED IN CHART. OTHER THAN REPORTED PAIN, NO CHANGES FROM PREVIOUS ASSESSMENTS. INTAKE AND OUTPUT DOCUMENTED IN CHART. WARM BLANKET PROVIDED. PT DENIES ANY OTHER NEEDS AT THIS TIME. CALL LIGHT AND PERSONAL BELONGINGS ARE WITHIN REACH.
--- NOTE | 2025-04-17 16:11 | NUR ---
PT LAYING IN BED WITH EYES CLOSED. RR EVEN AND UNLABORED. CALL LIGHT AND PERSONAL BELONGINGS ARE WITHIN REACH.
--- NOTE | 2025-04-17 17:00 | NUR ---
PT CALLED REPORTING A BOWEL MOVEMENT. THIS RN AND CLOTILDE RN IN ROOM TO CLEAN PATIENT UP. FRESH CHUX, BRIEF AND BARRIER CREAM APPLIED. DINNER TRAY AND FRESH ICE WATER DELIVERED AT THIS TIME. PERICARE COMPLETE. CALL LIGHT AND PERSONAL BELONGINGS ARE WITHIN REACH; PT DENIES ANY OTHER NEEDS.
--- NOTE | 2025-04-17 18:32 | NUR ---
PATIENT HAD A BOWEL MOVEMENT AT THIS TIME. PATIENT WITH NEW BRIEF AND CHUX IN PLACE. SHAHEEN CARE AND LAZO CARE COMPLETE AT THIS TIME. BARRIER OINTMENT IN PLACE. PATIENT BLINDS CLOSED AND THE LIGHTS SHUT OFF PER PATIENT REQUEST. PATIENT IS WATCHING TV. PATIENT STATED NO FURTHER NEEDS AT THIS TIME. CALL LIGHT AND PERSONAL BELONGINGS ARE WITHIN REACH.
--- NOTE | 2025-04-17 19:30 | NUR ---
SHIFT REPORT RECEIVED. PATIENT'S IN TO VISIT HER. PATIENT RESTING IN BED. WARM BLANKET PROVIDED. PATIENT DENIED ANY OTHER NEEDS.
--- NOTE | 2025-04-17 20:30 | NUR ---
PATIENT PROVIDED PRN PAIN MEDS FOR 5/10 ABD PAIN. PATIENT DENIED NAUSEA. ABD IS MILDLY DISTENDED AND TENDER. BOWEL SOUNDS ACTIVE. PATIENT INCONTINENT OF STOOL. ALL SHAHEEN CARE DONE AND LAZO CARE DONE. BARRIER CREAM APPLIED TO REDNESS NOTED IN SHAHEEN AREA. PATIENT HAS GENERALIZED EDEMA IN HIPS/THIGHS AND +2 ON ELBERT LOWER EXTREMITIES. PATIENT REPORTS EDEMA HAS IMPROVED SOME. PATIENT REPORTS TENDERNESS AT IV SITE WHEN FLUSHED. NO SIGN OF INFILTRATION OR REDNESS. IV SITE SL. PATIENT ASSISTED TO REPOSITION IN BED; WHICH SHE DOES MOSTLY HERSELF. LIGHTS DIMMED PER REQUEST. CALL LIGHT IN REACH.
--- NOTE | 2025-04-17 22:00 | NUR ---
SECONDARY IV SITE ESTABLISHED AND IV ABX STARTED BY BETTY KING AND CHELLE KING.
[2025-04-18] VITALS (13 sets, daily range): BP systolic 84–114; BP diastolic 53–70
--- NOTE | 2025-04-18 00:41 | NUR ---
PATIENT APPEARS RESTFUL IN BED. EYES CLOSED. CALL LIGHT IN REACH.
--- NOTE | 2025-04-18 06:26 | NUR ---
PATIENT INCONTINENT OF SMALL AMOUNT OF LOOSE STOOL. PATIENT ABLE TO ASSIST IN ROLLING FOR ATTENDS CHANGED. REDNESS NOTED THROUGHOUT SHAHEEN AREA. BARRIER CREAM APPLIED. LAZO CARE DONE. PATIENT ABLE TO REPOSITION HERSELF UP IN BED. FRESH ICE WATER PROVIDED. PATIENT OFFERED TO GET UP TO CHAIR WHICH SHE DECLINED. LAB IN FOR MORNING DRAW. CALL LIGHT IN REACH.
[2025-04-18 06:29] LABS: BASOPHILS 0.4 % (0.1-1.2); EOSINOPHILS 1.6 % (0.7-5.8); LYMPHOCYTES 14.2 % (19.3-51.7); MCH 31.4 PG (25.6-32.2); MCHC 32.7 g/dL (32.2-35.5); MCV 96.1 fL (79.4-94.8); MONOCYTES 12.5 % (4.7-12.5); NEUTROPHILS 69.5 % (34.0-71.1); RBC 3.85 M/uL (3.93-5.22)
[2025-04-18 06:39] LABS: GLOMERULAR FILTRATION RATE,EST 111.0 mL/min (>60); UREA NITROGEN 5.0 mg/dL (7-18)
--- NOTE | 2025-04-18 06:49 | NUR ---
PATIENT UPDATE PROVIDED TO
--- NOTE | 2025-04-18 08:15 | NUR ---
REPORT RECEIVED FROM KASSY KING. PT RESTING IN BED, EYES CLOSED, RESP EVEN AND UNLABORED, ON CONT CARDIAC MONITORING.
--- NOTE | 2025-04-18 09:19 | NUR ---
SLEEPING AT THIS TIME. PER NURSES, PATIENT'S STOOL FREQUENCY HAS DECREASED. CURRENTLY SHE CONTINUES TO PLAN TO DC TO HOME WITH FAMILY ASSISTING HER WHEN SHE IS MEDICALLY READY
--- NOTE | 2025-04-18 10:24 | NUR ---
DR ARIZA IN TO SEE PT. PT THEN INC OF STOOL, ATTENDS CHANGED AND PT ASSITED UP TO CHAIR FOR BREAKFAST.
--- NOTE | 2025-04-18 10:45 | NUR ---
DR CH IN TO SAY PT IS NOW TRANSFERRED TO MED SURG STATUS.
--- NOTE | 2025-04-18 11:00 | NUR ---
PT HAS FINISHED EATING HER BREAKFAST OF CHEERIOS AND IS NOW READY TO TAKE A WALK. PT WAS ASSISTED INTO BATHROOM TO BRUSH HER TEETH AND WASH HER FACE AND BACK WAS WASHED. PT THEN SAT ON TOILET TO HAVE ANOTHER BOWEL MOVEMENT. SHE WAS THEN CLEANED UP AND PHYSICAL THERAPY TOOK HER OUT TO WORK WITH HER, PT THEN WALKED DOWN TO HER NEW ROOM ON [facility].
--- NOTE | 2025-04-18 11:58 | NUR ---
REPORT GIVEN TO GEOVANY KING.
--- NOTE | 2025-04-18 12:01 | NUR ---
RECIEVED REPORT FROM CCU RNJACEK. PT IS RESTING IN BED WITH EYES CLOSED, RR EVEN AND UNLABORED. CALL LIGHT IS WITHIN REACH.
--- NOTE | 2025-04-18 12:40 | NUR ---
PT LAYING IN BED SUPINE. FULL ASSESSMENT COMPLETE AND DOCUMENTED IN CHART. NORMAL S1, S2 ASCULTATED. LUNGS CLEAR THROUGHOUT. LAZO CATHETER DRAINING CONCENTRATED, CATHY URINE. PT ALERT AND ORIENTED TIMES 4, REPORTS PAIN 4/10, REQUESTING PAIN MEDICATION. PAIN MEDS ADMINISTERED PER THE EMAR. 1+ PITTING EDEMA NOTED TO BLE. PT DENIES ANY NUMBNESS, TINGLING, OR NAUSEA. ASSISTED PT WITH SETTING UP LUNCH TRAY. PT DENIES ANY FURTHER NEEDS AT HTIS TIME. CALL LIGHT AND PERSONAL BELONGINGS ARE WITHIN REACH.
--- NOTE | 2025-04-18 13:42 | NUR ---
PT LAYING IN BED WITH EYES OPEN. CALL LIGHT AND PERSONAL BELONGINGS ARE WITHIN REACH. RR EVEN AND UNLABORED.
--- NOTE | 2025-04-18 14:10 | NUR ---
PT CALLED REPORTING A BOWEL MOVEMENT. THIS RN AND FERNANDO MABRY IN ROOM TO ASSIST PT. FRESH BRIEF AND BARRIER CREAM APPLIED. VS AND INTAKE AND OUTPUT VALUES DOCUMENTED IN CHART. LAZO CARE COMPLETE AT THIS TIME. PT STATED NO FURTHER NEEDS. CALL LIGHT AND PERSONAL BELONGINGS ARE WITHIN REACH.
--- NOTE | 2025-04-18 16:08 | NUR ---
FOCUSED ASSESSMENTS COMPLETE. NO CHANGES FROM MORNING ASSESSMENT. PT DENIES ANY NEEDS AT THIS TIME.
--- NOTE | 2025-04-18 17:41 | NUR ---
PT SITTING UP IN BED WITH DINNER TRAY, TALKING ON PHONE. CALL LIGHT AND PERSONAL BELONGINGS ARE WITHIN REACH.
--- NOTE | 2025-04-18 18:06 | NUR ---
PT SITTING IN BED WITH HEAD ELEVATED, WATCHING TV. RR EVEN AND UNLABORED. CALL LIGHT AND PERSONAL BELONGINGS ARE WITHIN REACH.
--- NOTE | 2025-04-18 19:46 | NUR ---
REPORT RECEIVED FROM DAY SHIFT RN. PATIENT RESTING IN BED ON BACK WITH EYES CLOSED. RESPIRATIONS EVEN AND UNLABORED. CALL LIGHT IN REACH.
--- NOTE | 2025-04-18 22:12 | NUR ---
CALL LIGHT ANSWERED. PATIENT STATED SHE HAD AN INCONTINENT BM. NEW BEDDING, BREIF, AND PRESTON PLACED AFTER PERICARE PROVIDED. LAZO CATH CARE PROVIDED PER PROTOCOL. SCHEDULED AND PRN MEDICATIONS ADMINSITERED. PATIENT REPOSITIONED IN BED. PATIENT DENIES FURTHER NEEDS AT THIS TIME. BED ALARM ON. CALL LIGHT IN REACH.
[2025-04-19] VITALS (8 sets, daily range): BP systolic 100–108; BP diastolic 51–77
--- NOTE | 2025-04-19 00:44 | NUR ---
PATIENT RESTING IN BED ON BACK WITH EYES CLOSED. RESPIRATIONS EVEN AND UNLABORED. CALL LIGHT IN REACH. BED ALARM ON.
--- NOTE | 2025-04-19 02:12 | NUR ---
ROUNDED ON PATIENT, RESTING IN BED WITH EYES CLOSED, RESPIRATIONS EVEN AND UNLABORED, NO NEEDS IDENTIFIED AT THIS TIME. CALL LIGHT IN REACH.
--- NOTE | 2025-04-19 02:41 | NUR ---
PATIENT RESTING IN BED ON BACK. SCHEDULED MEDICATIONS ADMINISTERED. PATIENT DENIES FURTHER NEEDS AT THIS TIME. CALL LIGHT IN REACH.
--- NOTE | 2025-04-19 04:53 | NUR ---
IN PATIENT ROOM, PERICARE PERFORMED DUE TO INCONTINENCE, NEW BRIEF, CHUX, BARRIER CREAM APPLIED. PATIENT ABLE TO ASSIST IN TURNING IN BED. PATIENTS LEGS ELEVATED WITH PILLOWS. BED ALARM SET, NO OTHER NEEDS AT THIS TIME. CALL LIGHT IN REACH.
--- NOTE | 2025-04-19 06:33 | NUR ---
PATIENT RESTING IN BED. SCHEDULED IV ABX INFUSING PER ORDER. PATIENT DENIES FURTHER NEEDS. CALL LIGHT IN REACH.
[2025-04-19 06:51] LABS: BASOPHILS 0.3 % (0.1-1.2); EOSINOPHILS 1.4 % (0.7-5.8); LYMPHOCYTES 12.4 % (19.3-51.7); MCH 31.5 PG (25.6-32.2); MCHC 33.0 g/dL (32.2-35.5); MCV 95.5 fL (79.4-94.8); MONOCYTES 11.0 % (4.7-12.5); NEUTROPHILS 74.0 % (34.0-71.1); RBC 3.75 M/uL (3.93-5.22)
[2025-04-19 07:01] LABS: GLOMERULAR FILTRATION RATE,EST 115.0 mL/min (>60); UREA NITROGEN 7.0 mg/dL (7-18)
--- NOTE | 2025-04-19 07:15 | NUR ---
RECIEVED REPORT FROM FERNANDO MENDOZA, AND NIDHI RN. PT IS LAYING IN BED WITH EYES CLOSED. RR EVEN AND UNLABORED. CALL LIGHT AND PERSONAL BELONGINGS ARE WITHIN REACH.
--- NOTE | 2025-04-19 08:02 | NUR ---
PATIENT IN CHAIR AT THIS TIME. CAGE OPERATOR CHARTED HOURLY ROUNDS, PATIENT HAD SOILED BRIEF, NEW BRIEF AND NEW LINENS PROVIDED BY THIS CAGE OPERATOR. CAGE OPERATOR ASSISTED PATIENT TO BEDSIDE COMMODE AND THEN TO THE CHAIR. CALL LIGHT WITHIN REACH, NO FURTHER NEEDS AT THIS TIME
--- NOTE | 2025-04-19 08:45 | NUR ---
PT LAYING IN BED WITH EYES OPEN, WATCHING TV. RR EVEN AND UNLABORED. CALL LIGHT AND PERSONAL BELONGINGS ARE WITHIN REACH.
--- NOTE | 2025-04-19 09:13 | NUR ---
THIS COMPLIANCE PROGRAM MANAGER ENTERED ROOM FOR HOURLY ROUNDS. PATIENT TOLD COMPLIANCE PROGRAM MANAGER THAT SHE "NEEDED TO BE CLEANED UP BECAUSE SHE HAD A BOWEL MOVEMENT A WHILE AGO" COMPLIANCE PROGRAM MANAGER ASKED PATIENT IF SHE CALLED, PATIENT STATED "NO I FIGURED THAT SOMEONE WOULD COME IN AT SOME POINT THIS MORNING." THIS COMPLIANCE PROGRAM MANAGER TOLD PATIENT THAT SHE NEEDS TO CALL IF SHE HAS A BOWEL MOVEMENT IN HER BRIEF SO WE CAN ASSIST PATIENT IN GETTING CLEANED UP. FERNANDO MABRY NOTIFIED. CALL LIGHT WITHIN REACH, NO FURTHER NEEDS.
[2025-04-19] MEDS ORDERED: POTASSIUM CHLORIDE 10 MEQ TABCR PO ONE (09:30)
--- NOTE | 2025-04-19 09:45 | NUR ---
0900 MEDICATIONS ADMINISTERED PER THE EMAR. VS AND INTAKE AND OUTPUT VALUES TAKEN AND DOCUMENTED IN CHART. NORMAL S1, S2 AUSCULTATED. LUNGS CLEAR THROUGHOUT. 2+ PITTING EDEMA NOTED TO BLE. IV FLUSHED WITH 10 ML NORMAL SALINE. DRESSING IS CLEAN, DRY AND INTACT. LAZO CATHETER D/C'D PER MD ORDER. UPON ENTERING ROOM, FERNANDO MABRY, REMOVED BRIEF AND FOUND LIQUID STOOL. WHEN ASKED BY FERNANDO MABRY, ABOUT KNOWING IF SHE HAD HAD A BM, PT STATED, "NO". PT REEDUCATED ABOUT FREQUENT TOILETING AND PRESSING CALL LIGHT WHEN FEELING THE URGE TO VOID OR HAVE A BM. SKIN NOTED TO BE VERY RED ON BUTTOCKS, GROIN, AND PERIAREA. NO FURTHER NEEDS. CALL LIGHT AND PERSONAL BELONGINGS ARE WITHIN REACH.
--- NOTE | 2025-04-19 10:10 | NUR ---
PT CALLED STATING SHE NEEDED TO USE BSC. THIS RN IN TO ASSIST PT. HELPED PT MOVE FROM EDGE OF BED TO BSC, WHERE PT BOTH VOIDED AND HAD A BM. NEW PULL-UP PLACED ON PT. PT BACK IN BED WITH CALL LIGHT AND PERSONAL BELONGINGS WITHIN REACH.
--- NOTE | 2025-04-19 11:26 | NUR ---
IN TO ADMINISTER MEDICATIONS PER THE EMAR. PT SITTING IN BED WITH HEAD ELEVATED. CALL LIGHT AND PERSONAL BELONGINGS ARE WITHIN REACH.
--- NOTE | 2025-04-19 12:28 | NUR ---
PATIENT IN CHAIR AT THIS TIME. DRAFTING INSTRUCTOR WENT INTO ROOM FOR HOURLY ROUNDS, PATIENT STATED "I NEED TO GET UP" THIS DRAFTING INSTRUCTOR WENT INTO PATIENTS ROOM. PATIENT SAT ON EDGE OF BED TO MOVE TO CHAIR, THEN PATIENT STATED "WELL I AM ALREADY GOING" THIS DRAFTING INSTRUCTOR HAD TO INSTRUCT PATIENT TO MOVE TO BEDSIDE COMMODE. PATIENT THEN WAITED FOR DRAFTING INSTRUCTOR TO PULL BRIEF DOWN SO PATIENT COULD SIT ON COMMODE. THIS DRAFTING INSTRUCTOR PROVIDED PATIENT WITH SHAHEEN CARE AND PROVIDED NEW BRIEF. CALL LIGHT WITHIN REACH, NO FURTHER NEEDS.
--- NOTE | 2025-04-19 12:28 | NUR ---
PT UP IN CHAIR EATING LUNCH. CALL LIGHT AND PERSONAL BELONGINGS ARE WITHIN REACH.
--- NOTE | 2025-04-19 14:19 | NUR ---
AND SON VISITING WITH PT AT THIS TIME. RR EVEN AND UNLABORED. CALL LIGHT AND PERSONAL BELONGINGS ARE WITHIN REACH.
--- NOTE | 2025-04-19 15:42 | NUR ---
PT LAYING IN BED WITH EYES OPEN. RR EVEN AND UNLABORED. CALL LIGHT AND PERSONAL BELONGINGS ARE WITHIN REACH.
--- NOTE | 2025-04-19 16:22 | NUR ---
PT RESTING IN BED WITH EYES CLOSED. RR EVEN AND UNLABORED. CALL LIGHT AND PERSONAL BELONGINGS ARE WITHIN REACH.
--- NOTE | 2025-04-19 17:41 | NUR ---
PT CALLED STATING, "I NEED MY NURSES." CLOTILDE, RN, AND THIS RN TO PT'S ROOM TO SEE WHAT THEY NEEDED. UPON OPENING DOOR, PT STATED, "I NEED CHANGED." THIS RN ASKED PT IF SHE KNEW WHEN SHE NEEDED TO USE THE BATHROOM AT HOME. PT STATED, "WELL YEAH!" THIS RN ASKED PT WHAT HER BATHROOM ROUTINE AT HOME WAS LIKE. PT REPLIED, "WELL YOU GO THROUGH THE DOOR, AND THERE'S A COUNTER, A SINK, A SHOWER, AND THEN THE TOILET." THIS RN CLARIFIED QUESTION. PT STATED, "BUT THIS WASN'T HAPPENING AT HOME." PT CLEANED, FRESH BARRIER OINTMENT AND NEW BRIEF APPLIED. PT SET UP WITH DINNER TRAY. NO NEEDS AT THIS TIME. PT ADVISED THAT SOMEONE WOULD BE IN AROUND 1800 TO GET HER TO THE BSC. PT STATED NO FURTHER NEEDS AT THIS TIME. CALL LIGHT AND PERSONAL BELONGINGS ARE WITHIN REACH.
--- NOTE | 2025-04-19 17:56 | NUR ---
PATIENT IN BED AT THIS TIME. TIRE REPAIR MECHANIC CHARTED I&O'S, TIRE REPAIR MECHANIC ALSO ASSISTED PATIENT TO BEDSIDE COMMODE. CALL LIGHT WITHIN REACH, NO FURTHER NEEDS.
--- NOTE | 2025-04-19 18:09 | NUR ---
PT RESTING IN BED WITH EYES CLOSED. TURNED OFF LIGHTS, PER PT REQUEST. CALL LIGHT AND PERSONAL BELONGINGS ARE WITHIN REACH.
--- NOTE | 2025-04-19 18:31 | NUR ---
NOTIFIED OF PATIENT VOIDING 200-300 ML TOTAL FOR THE DAY. THIS IS NOT A CHANGE FROM THE LAST TWO DAYS. STATED NO NEW ORDERS AT THIS TIME. CALL ENDED.
--- NOTE | 2025-04-19 19:10 | NUR ---
REPORT RECIEVED FROM FERNANDO MABRY AND FERNANDO ARMENTA. PATIENT RESTING IN BED AND IS WITHOUT ANY NEEDS AT THIS TIME. CALL LIGHT AND PERSONAL BELONGINGS ARE WITHIN REACH.
--- NOTE | 2025-04-19 19:45 | NUR ---
DR CH AT BEDSIDE. MD WITH VERBAL ORDER FOR 500ML NS BOLUS ONCE. MD WITH NO FURTHER ORDERS AT THIS TIME.
[2025-04-19] MEDS ORDERED: SODIUM CHLORIDE 0.9% 500 ML IV PRN (20:00)
--- NOTE | 2025-04-19 20:05 | NUR ---
PATIENT MEDICATED PER EMAR. PATIENT ASSESSMENT COMPLETED. PATIENT IV FLUSHED WITH 10ML OF NS, DRESSING IS INTACT, IV FLUIDS INFUSING PER ORDER. PATIENT UP TO BEDSIDE COMMODE WITH ONE PERSON ASSIST. PATIENT WITH ONE MEDIUM LOOSE/ JELLY LIKE BM. PATIENT BACK IN BED. FRESH ICE WATER PROVIDED. VITAL SIGNS TAKEN AND ARE STABLE. PATIENT WITHOUT FURTHER NEEDS AT THIS TIME. CALL LIGHT AND PERSONAL BELONGINGS ARE WITHIN REACH.
--- NOTE | 2025-04-19 21:01 | NUR ---
PATIENT MEDICATED PER EMAR. PATIENT RESTING IN BED AND IS WITHOUT FURTHER NEEDS AT THIS TIME. CALL LIGHT AND PERSONAL BELONGINGS ARE WITHIN REACH.
--- NOTE | 2025-04-19 21:39 | NUR ---
PATIENT IV ABX COMPLETED. IV FLUSHED WITH 10ML OF NS, DRESSING IS INTACT. IV IS SALINE LOCKED. PATIENT WITHOUT FURTHER NEEDS AT THIS TIME. CALL LIGHT AND PERSONAL BELONGINGS ARE WITHIN REACH.
--- NOTE | 2025-04-19 22:22 | NUR ---
PATIENT RESTING IN BED ON HER LEFT SIDE WITH HER EYES CLOSED. EVEN AND UNLABORED RESPIRATIONS NOTED. CALL LIGHT AND PERSONAL BELONGINGS ARE WITHIN REACH.
--- NOTE | 2025-04-19 23:42 | NUR ---
PATIENT RESTING IN BED ON HER BACK WITH HER EYES CLOSED. EVEN AND UNLABORED RESPIRATIONS NOTED. CALL LIGHT AND PERSONAL BELONGINGS ARE WITHIN REACH.
[2025-04-20] VITALS (9 sets, daily range): BP systolic 91–106; BP diastolic 51–61
--- NOTE | 2025-04-20 00:54 | NUR ---
PATIENT RANG CALL LIGHT AND ASKED FOR ASSITANCE IN GETTING UP TO USE THE RESTROOM. PATIENT HAD A BOWEL MOVEMENT IN CAMODE AND PATIENT WAS SAFELY TRANSFERED OVER TO BED. CALL LIGHT WITHIN REACH, NO FURTHER NEEDS AT THIS TIME.
--- NOTE | 2025-04-20 01:16 | NUR ---
Scheduled vanco po admin to patient. Patient reports lessened loose stools. Patient denies needs at this time. Call light within pt reach.
--- NOTE | 2025-04-20 06:06 | NUR ---
[facility] [place] Patient continues to have loose stools. Pt reports she slept well last night. Fresh water provided.
[2025-04-20] MEDS ORDERED: POTASSIUM CHLORIDE 10 MEQ TABCR PO ONE (06:15)
--- NOTE | 2025-04-20 06:56 | NUR ---
REPORT RECEIVED FROM RECRUITMENT OFFICER FERNANDO CHACKO. PATIENT IS LYING IN BED WITH EYES CLOSED AND RESPIRATIONS ARE EVEN AND UNLABORED. CALL LIGHT AND PERSONAL BELONGINGS ARE WITHIN REACH.
--- NOTE | 2025-04-20 07:36 | NUR ---
PATIENT IS LYING IN BED WITH EYES CLOSED AND RESPIRATIONS ARE EVEN AND UNLABORED. CALL LIGHT AND PERSONAL BELONGINGS ARE WITHIN REACH.
--- NOTE | 2025-04-20 08:45 | NUR ---
PT AMBULATED TO TOILET THEN WASHED HANDS AND FACE AND PERFORMED ORAL CARE WITH STAND BY ASSIST. THIS PUMP OPERATOR [employer] ALSO CHANGED PT'S BRIEF, AND TOOK OUT TRASH. GOT PT FRESH ICE WATER REQUESTED.
--- NOTE | 2025-04-20 08:54 | NUR ---
PT REPORTS NO PAIN OTHER THAN A SHOULDER RECENTLY OPPERATED ON - CLEANED UP ROOM, TOOK OUT TRASH. GOT PT FRESH ICE WATER AND A CUP OF ICE WITH SPOON REQUESTED. CALL LIGHT WITHIN REACH AND PT SITTING UP IN BED WATCHING TV. PT REPORTS NEEDING NOTHING MORE AT THIS TIME.
--- NOTE | 2025-04-20 09:00 | NUR ---
AND THIS RN ROUNDED ON THE PATIENT AT THIS TIME. MD STATED THAT THE PATIENT WILL LEAVE TOMORROW. MD NOTIFIED OF NO LAB ORDERS FOR THIS MORNING. MD REPORTED LABS WERE COMPLETED THIS MORNING. NO NEW ORDERS AT THIS TIME. RN NOTIFIED TO PATIENT THAT JAMESON ALLEN WOULD COME PACK TO ASSIST HER WITH A SHOWER. CALL LIGHT AND PERSONAL BELONGINGS ARE WITHIN REACH.
--- NOTE | 2025-04-20 10:17 | NUR ---
PATIENT IS LYING IN BED WITH EYES OPEN AND RESPIRATIONS ARE EVEN AND UNLABORED. PATIENT IS WATCHING TV. CALL LIGHT AND PERSONAL BELONGINGS ARE WITHIN REACH.
--- NOTE | 2025-04-20 11:07 | NUR ---
PATIENT IS LYING IN BED WITH HOB ELEVATED. PATIENT WITH EYES OPEN AND RESPIRATIONS ARE EVEN AND UNLABORED. PATIENT IS WATCHING TV. PATIENT STATED NO NEEDS AT THIS TIME. CALL LIGHT AND PERSONAL BELONGINGS ARE WITHIN REACH.
--- NOTE | 2025-04-20 12:18 | NUR ---
PATIENT IS SITTING UPRIGHT IN THE CHAIR AND EATING LUNCH AT THIS TIME. TV IS ON. THIS RN REMINDED PATIENT TO BE DRINKING FLUIDS. PATIENT STATED "I CAN ONLY DO SO MUCH". PATIENT RE-EDUCATED ON THE IMPORTANCE OF DRINKING FLUIDS. PATIENT EXPRESSED UNDERSTANDING. PATIENT STATED NO FURTHER NEEDS AT THIS TIME. CALL LIGHT AND PERSONAL BELONGINGS ARE WITHIN REACH.
--- NOTE | 2025-04-20 12:45 | NUR ---
PATIENT LUNCH TRAY THROWN AWAY AT THIS TIME. PATIENT TAKEN TO THE BATHROOM BY STAND BY ASSIST. PATIENT TOLERATED WELL AND HAD ONE BM. PATIENT THEN GOT BACK INTO BED. PATIENT STATED NO FURTHER NEEDS AT THIS TIME. CALL LIGHT AND PERSONAL BELONGINGS ARE WITHIN REACH.
--- NOTE | 2025-04-20 13:05 | NUR ---
PATIENT IS LYING IN BED WITH EYES CLOSED AND RESPIRATIONS ARE EVEN AND UNLABORED. TV IS ON. CALL LIGHT AND PERSONAL BELONGINGS ARE WITHIN REACH.
--- NOTE | 2025-04-20 13:49 | NUR ---
PT RESTING IN BED, ASKED THIS HEALTH PROFESSIONAL TO TURN TV OFF. BLIND IS DOWN, PT TRYING TO NAP. REMINDED PT AGAIN ABOUT DRINKING MUCH SHE CAN. PT HAS GRAPE JUICE AND FRESH ICE WATER NEXT TO BED. CALL LIGHT IS WITHIN REACH. PT REPORTS NEEDING NOTHING MORE AT THIS TIME. REMINDED ABOUT DRINKING FLUIDS AGAIN BEFORE LEAVING ROOM.
--- NOTE | 2025-04-20 14:43 | NUR ---
PATIENT IS LYING IN BED WITH EYES OPEN AND RESPIRATIONS ARE EVEN AND UNLABORED. FOCUSED ASSESSMENT WITH NO CHANGE FROM THIS MORNING. 1400 MEDICATIONS ADMINISTERED PER THE EMAR. PATIENT REMINDED TO BE TAKING IN FLUIDS. PATIENT REPORTED THAT SHE HAS BEEN. PATIENT REPORTED NOT GETTING A SHOWER OR WALK YET. THIS RN DELEGATED TASK TO JAMESON ALLEN. PATIENT TEMP IS 98.9F AT THIS TIME. PATIENT STATED NO FURTHER NEEDS AT THIS TIME. CALL LIGHT AND PERSONAL BELONGINGS ARE WITHIN REACH.
--- NOTE | 2025-04-20 14:58 | NUR ---
PATIENT IS AMBULATING IN THE HALLWAY WITH JAMESON ALLEN AT THIS TIME.
--- NOTE | 2025-04-20 15:08 | NUR ---
IV FLAGYL COMPLETE. IV SITE FLUSHED WITH 10 ML NORMAL SALINE. IV PUMP CLEARED OF INTAKE FLUIDS AND DOCUMENTED IN THE CHART. PATIENT FINISHED WALKING IN THE HALLS. JAMESON ALLEN IS NOW IN THE ROOM WITH THE PATIENT AND GOING TO GET HER IN THE SHOWER. PATIENT AND QUALITY ASSURANCE ASSESSOR STATED NO FURTHER NEEDS AT THIS TIME. CALL LIGHT AND PERSONAL BELONGINGS ARE WITHIN REACH.
--- NOTE | 2025-04-20 15:28 | NUR ---
PT TOOK A SHOWER FOLLOWING A LAP AROUND THE MED SURG FLOOR. PT'S RN ASKED ME TO HAVE PT WALK FIRST, WHILE IV FINISHED. PT SHOWERED. PT THEN USED THE TOILET. I HELPED PT WIPE HER BACK SIDE, PUT ON A CLEAN BRIEF AND USE BARRIER CREAM BEFORE BRIEF WAS PULLED UP. PT HAS CLEAN SOCKS AND GOWN ON, AND A COMPLETE LINEN CHANGE WAS PERFORMED. I CLEANED UP SHOWER/BATHROOM AND PT RETURNED TO BED WITH CALL LIGHT AND WATER/DRINKS WITHIN REACH.
--- NOTE | 2025-04-20 16:13 | NUR ---
PATIENT IS LYING IN BED WITH HOB ELEVATED. PATIENT WITH EYES OPEN AND RESPIRATIONS ARE EVEN AND UNLABORED. PATIENT REPORTED NO NEEDS AT THIS TIME WHEN ASKED BY THIS RN. CALL LIGHT AND PERSONAL BELONGINGS ARE WITHIN REACH.
--- NOTE | 2025-04-20 17:25 | NUR ---
PATIENT IS LYING IN BED WITH HOB ELEVATED. PATIENT WITH EYES OPEN AND RESPIRATIONS ARE EVEN AND UNLABORED. PATIENT IS EATING DINNER AND WATCHING TV. CALL LIGHT AND PERSONAL BELONGINGS ARE WITHIN REACH.
--- NOTE | 2025-04-20 17:36 | NUR ---
NOTIFIED OF PATIENT NOT HAVING ANY LABS ORDERED. RN NOTIFED OF PATIENT HAVING POTASSIUM CHLORIDE TABLETS ORDERED WITHOUT LABS. MD STATED HE WOULD BUT IN A LAB ORDER. RN ALSO UPDATED PATIENT REGARDING LOW URINE OUTPUT AND SBP IN THE 90'S-100'S. MD STATED HE WOULD PUT IN A BOLUS ORDER. MD WITH NO FURTHER ORDERS AT THIS TIME. CALL ENDED.
--- NOTE | 2025-04-20 18:00 | NUR ---
PT RESTING IN BED WATCHING TV. ASKED FOR BLANKET FOR WARMTH. PT HAS FRESH ICE WATER AND GRAPE JUICE WITH ICE BY HER BED, AND SHE IS BEING REMINDED OFTEN TO DRINK MUCH SHE CAN, HER INTAKE HAS BEEN MINIMAL TODAY. ROOM CLEANED AND TRASH REMOVED. CALL LIGHT WITHIN REACH. PT REPORTS NEEDING NOTHING MORE AT THIS TIME.
--- NOTE | 2025-04-20 18:08 | NUR ---
PT REQUESTED PILLOWS UNDER HER BACK AND REPORTED FEELING TIRED FROM THE SHOWER TODAY. PT REQUESTED TYLENOL, REPORTED TO RN. GOT PT COMFORTABLE IN BED, CALL LIGHT NEXT TO PT ON BED. FRESH ICE WATER AND GRAPE JUICE WITHIN REACH. PT REPORTED NEEDING NOTHING MORE AT THIS TIME.
[2025-04-20 18:09] LABS: BASOPHILS 0.3 % (0.1-1.2); EOSINOPHILS 0.7 % (0.7-5.8); LYMPHOCYTES 10.6 % (19.3-51.7); MCH 31.7 PG (25.6-32.2); MCHC 31.6 g/dL (32.2-35.5); MCV 100.3 fL (79.4-94.8); MONOCYTES 8.6 % (4.7-12.5); NEUTROPHILS 79.3 % (34.0-71.1); RBC 3.66 M/uL (3.93-5.22)
[2025-04-20 18:19] LABS: GLOMERULAR FILTRATION RATE,EST 105.0 mL/min (>60); UREA NITROGEN 7.0 mg/dL (7-18)
--- NOTE | 2025-04-20 20:15 | NUR ---
Patient awake, alert and oriented x3, no acute distress. Patient reports she is feeling much better today; no nausea and lessened stooling. Patient denies pain. Vitsl signs are stable, afebrile. Fresh water and a snack provided to patient.
[2025-04-21] VITALS (10 sets, daily range): BP systolic 91–106; BP diastolic 50–58
--- NOTE | 2025-04-21 00:18 | NUR ---
REPORT RECIEVED FROM FERNANDO CHACKO. PATIENT UP IN BATHROOM WITH JAMESON ZENG. WARM BLANKET PROVIDED. PATIENT IS WITHOUT FURTHER NEEDS FROM THIS RN AT THIS TIME.
--- NOTE | 2025-04-21 00:21 | NUR ---
CALL LIGHT ANSWERED. SBA PATIENT UP TO THE BATHROOM USING WALKER AND BACK TO BED. PATIENT VOIDED UNMEASURED AND MIXED WITH LOOSE BM COLOR BROWN. PATIENT WASHED HANDS. WARM BLANKET PROVIDED. DENIES FURTHER NEEDS AT THIS TIME.
--- NOTE | 2025-04-21 02:30 | NUR ---
PATIENT MEDICATED PER EMAR. PATIENT WITHOUT FURTHER NEEDS AT THIS TIME. CALL LIGHT AND PERSONAL BELONGINGS ARE WITHIN REACH.
--- NOTE | 2025-04-21 04:34 | NUR ---
PATIENT MEDICATED PER EMAR FOR 3/10 STOMACH PAIN. PRN DOSE OF TYLENOL GIVEN. FRESH ICE WATER PROVIDED. PATIENT WITHOUT FURTHER NEEDS AT THIS TIME. CALL LIGHT AND PERSONAL BELONGINGS ARE WITHIN REACH.
[2025-04-21 05:26] LABS: BASOPHILS 0.3 % (0.1-1.2); EOSINOPHILS 0.9 % (0.7-5.8); LYMPHOCYTES 10.3 % (19.3-51.7); MCH 32.0 PG (25.6-32.2); MCHC 33.5 g/dL (32.2-35.5); MCV 95.4 fL (79.4-94.8); MONOCYTES 9.4 % (4.7-12.5); NEUTROPHILS 78.6 % (34.0-71.1); RBC 3.28 M/uL (3.93-5.22)
--- NOTE | 2025-04-21 05:40 | NUR ---
PATIENT MEDICATED PER EMAR. VITAL SIGNS TAKEN AND ARE STABLE. PATIENT UP TO THE BATHROOM VIA 1PERSON ASSIST WITH THE FWW. PATIENT BACK TO BED. IV FLUSHED WITH 10ML OF NS, DRESSING IS INTACT. IV ABX INFUSING PER ORDER. INTAKE AND OUTPUT DOCUMENTED. PATIENT WITHOUT FURTHER NEEDS AT THIS TIME. CALL LIGHT AND PERSONAL BELONGINGS ARE WITHIN REACH.
[2025-04-21 05:42] LABS: ALT (SGPT) 8.0 U/L (14-59); AST (SGOT) 16.0 U/L (15-37); GLOMERULAR FILTRATION RATE,EST 116.0 mL/min (>60); PROTEIN, TOTAL 4.0 g/dL (6.4-8.2); UREA NITROGEN 6.0 mg/dL (7-18)
--- NOTE | 2025-04-21 07:48 | NUR ---
PT RESTING EYES CLOSED AT TIME OF SHIFT REPORT, LEFT UNDISTURBED. FRESH H20 AND CALL LIGHT AT BEDSIDE.
[2025-04-21] MEDS ORDERED: POTASSIUM CHLORIDE 10 MEQ TABCR PO ONE (09:00)
--- NOTE | 2025-04-21 09:07 | NUR ---
PT TOOK A LAP AROUND THE [facility] FLOOR. SHE USED THE WALKER, SBA. PT HAS SHOULDER PAIN, FROM A RECENT SHOULDER SURGERY.
--- NOTE | 2025-04-21 09:18 | NUR ---
MORNING MEAL WELL TOLERATED. PT UP TO AMBULATE THE LONG WITH SBA FROM STAFF. DR ARIZA COMES BY DISCUSSED PLAN GOING FORWARD ALL QUESTIONS ANSWERED. PT BACK TO BED TO REST, AGREES SHE IS COMFORTABLE DENIES NEEDS OF. CALL LIGHT AND FRESH H20 IN REACH
--- NOTE | 2025-04-21 09:40 | NUR ---
CALLED MAGUI AT [facility] TO GET PT/OT NOTES FROM RECENT SNF STAY, NO ANSWER. LEFT MESSAGE.
--- NOTE | 2025-04-21 11:00 | NUR ---
PT SPENT SOME TIME UP IN THE CHAIR RETURNS TO REST IN BED AT THIS TIME. REQUEST TYLENOL FOR "TUMMY ACHE" DENIES OTHER NEEDS.
[2025-04-21] MEDS ORDERED: LACTATED RINGER'S 1,000 ML IV SCH (12:00)
[2025-04-21] MEDS ORDERED: DEXTROSE 5% 1,000 ML IV SCH (12:00)
--- NOTE | 2025-04-21 13:24 | NUR ---
PT RESTING IN BED TALKING ON THE PHONE WATCHING TV DENIES NEEDS AT THIS TIME
--- NOTE | 2025-04-21 13:51 | NUR ---
PT HAS FRESH ICE WATER AND JUICE NEXT TO HER BED. CALL LIGHT IS WITHIN REACH. PT HAS NO VISITORS AND IS WATCHING TV. PT IS REPORTING NEEDING NOTHING MORE AT THIS TIME.
--- NOTE | 2025-04-21 14:23 | NUR ---
PT RESTING EYES CLOSED LEFT UNDISTURBED
--- NOTE | 2025-04-21 16:31 | NUR ---
PT HAS BLINDS PULLED AND LIGHTS OFF RESTING ON THE BED. LEFT UNDISTURBED
--- NOTE | 2025-04-21 18:49 | NUR ---
PT BP HAS BEEN A LITTLE SOFT ALL DAY, SHE DENIES ANY SYMPTOMS. PT HAS BEEN RESTING IN BED EACH TIME, OFTEN SLEEPING, UNDER SEVERAL BLANKETS. MAP HAS REMAINED IN NORMAL RANGE
--- NOTE | 2025-04-21 19:20 | NUR ---
REPORT RECEIVED FROM KAIA KING. pt RESTING IN THE BED WITH EYES CLOSED. BOARD UPDATED. RR EVEN AND UNLABORED. NO NEEDS AT THIS TIME. CALL LIGHT WITHIN REACH.
--- NOTE | 2025-04-21 20:25 | NUR ---
ASSESSMENT AND VITAL SIGNS DONE. IV ASSESSED, WNL. IVF INFUSING, PER ORDER. BOWEL TONES ACTIVE. MINIMAL SWELLING IN BILAT LE. SCHEDULED MEDS ADMINISTERED. pt DENIES ANY OTHER NEEDS AT THIS TIME. CALL LIGHT WITHIN REACH.
--- NOTE | 2025-04-21 21:20 | NUR ---
IN RM TO HANG IV ABX. pt RESTING IN THE BED. pt DENIES ANY NEEDS AT THIS TIME. CALL LIGHT WITHIN REACH.
--- NOTE | 2025-04-21 23:46 | NUR ---
SUPERINTENDENT OIL FIELD DRILLING IN TO HELP pt WITH GETTING UP TO THE BR. NO OTHER NEEDS AT THIS TIME. CALL LIGHT WITHIN REACH
--- NOTE | 2025-04-21 23:55 | NUR ---
PT CALLED TO USE BR. MINIMALLY ASSISTED PT TO BR AND BACK TO BED, LYING ON LEFT SIDE. CALL LIGHT IN REACH.
--- NOTE | 2025-04-22 01:34 | NUR ---
PT resting in the bed with eyes closed. RR even and unlabored. call light within reach.
--- NOTE | 2025-04-22 02:45 | NUR ---
SAP HANA DEVELOPER INFORMED BY FIELD ENGINEER THAT PT REQUESTING PRN FOR PAIN. WRTIER TO ROOM. PT UP TO BATHROOM, STATES THAT SHE IS HAVING 3/10 PAIN TO STOMACH. PRN ADMINISTERED, SEE EMAR. PT ASSISTED BACK TO BED WITH 1 PA, TOLERATED WELL. PT DENIES FURTHER NEEDS AT THIS TIME. CALL LIGHT AND PERSONAL ITEMS WITHIN REACH. PRIMARY RN UPDATED.
[2025-04-22 04:33] VITALS: BP 100/52
--- NOTE | 2025-04-22 04:50 | NUR ---
pt RESTING IN THE BED WITH EYES CLOSED. RR EVEN AND UNLABORED. CALL LIGHT WITHIN REACH.
[2025-04-22 05:24] LABS: BASOPHILS 0.1 % (0.1-1.2); EOSINOPHILS 1.0 % (0.7-5.8); LYMPHOCYTES 12.4 % (19.3-51.7); MCH 32.5 PG (25.6-32.2); MCHC 34.0 g/dL (32.2-35.5); MCV 95.6 fL (79.4-94.8); MONOCYTES 10.1 % (4.7-12.5); NEUTROPHILS 75.9 % (34.0-71.1); RBC 3.17 M/uL (3.93-5.22)
[2025-04-22 05:39] LABS: ALT (SGPT) 8.0 U/L (14-59); AST (SGOT) 15.0 U/L (15-37); GLOMERULAR FILTRATION RATE,EST 115.0 mL/min (>60); PROTEIN, TOTAL 4.3 g/dL (6.4-8.2); UREA NITROGEN 4.0 mg/dL (7-18)
--- NOTE | 2025-04-22 06:02 | NUR ---
pt VITAL SIGNS DONE. pt IV FINISHED. IV ASSESSED, WNL. pt DENIES ANY OTHER NEEDS AT THIS TIME. CALL LIGHT WITHIN REACH.
--- NOTE | 2025-04-22 07:35 | NUR ---
PT SLEEPING SOUNDLY AT TIME OF SHIFT REPORT, LEFT UNDISTURBED. CALL LIGHT IN REACH FRESH H20 TO BEDSIDE
[2025-04-22] MEDS ORDERED: POTASSIUM CHLORIDE 40 MEQ,LIDOCAINE HCL 1% 40 MG in DEXTROSE 5% 250 ML IV ONE (07:45)
--- NOTE | 2025-04-22 08:15 | NUR ---
PATIENT CALLED TO USE BATHROOM, THIS FLOUR DISTRIBUTOR IN TO ASSIST. PATIENT UP TO BATHROOM AND THEN TO CHAIR, 1PA. PATIENT SET UP WITH BREAKFAST. CALL LIGHT IN REACH. NO FURTHER NEEDS AT THIS TIME.
--- NOTE | 2025-04-22 08:40 | NUR ---
PT SITTING UP IN CHAIR WITH FINISHED WITH MORNING MEAL. ATE VERY LITTLE DENIES NEED OF OTHER ITEMS. DENIES PAIN OR DISCOMFORT. REPORTS SHE IS STILL HAVEING SMALL LOOSE STOOLS BUT PATTERN AND CONSISTANCY ARE IMPROVING
--- NOTE | 2025-04-22 09:10 | NUR ---
ALERT AND ORIENTED, LYING IN BED. STATES SHE WOULD LIKE TO GO HOME TODAY, SHE IS FEELING BETTER. NO CM NEEDS FOR DC. INFORMED FOLLOW-UP APPIONTMENT WILL BE ON DC INSTRUCTIONS.
--- NOTE | 2025-04-22 09:32 | NUR ---
CONTACTED [facility], APPOINTMENT IS SCHEDULED FOR 04/25/25 AT 1645. UPDATED APPOINTMENT TIME AND DATE ON DC INSTRUCTIONS
--- NOTE | 2025-04-22 09:50 | NUR ---
PT BACK TO BED STATES SHE WANTS TO NAP
--- NOTE | 2025-04-22 10:16 | NUR ---
PATIENT IN BED AT THIS TIME, THIS BEEF SKINNER IN TO DO VITALS AND I&O'S. PATIENT LOOKS TO BE UPSET, WHEN ASKED IF SHE WAS OKAY PATIENT STATED "THIS IV IS JUST BURNING SO BADLY. IT HURTS." CHARGE NURSE NOTIFIED AND NOW IN ROOM. VITALS AND I&O'S DONE AND CHARTED. WARM WASHCLOTH OFFERED. CALL LIGHT IN REACH. NO FURTHER NEEDS AT THIS TIME.
[2025-04-22 10:18] VITALS: BP 101/58
[2025-04-22 10:20] VITALS: BP 101/58
--- NOTE | 2025-04-22 10:38 | NUR ---
PT RESTING EYES CLOSED LEFT UNDISTURBED
[2025-04-22] MEDS ORDERED: VANCOMYCIN HCL125 MG PO (12:20)
[2025-04-22] MEDS ORDERED: CULTURELLE1 EACH PO (12:24)
[2025-04-22] MEDS ORDERED: METRONIDAZOLE250 MG PO (12:24)
--- NOTE | 2025-04-22 12:28 | NUR ---
DR KIM IN TO SEE PT DC DISCUSSED WELL AFTERCARE ALL QUESTIONS ANSWERED
--- NOTE | 2025-04-22 13:22 | NUR ---
DC INSTRUCTIONS PROVIDED PT REPEATS INSTRUCTIONS DEMONSTRATES HER UNDERSTANDING. POTASSIUM STILL INFUSING PT TO DC AFTER THAT. PHARMACY IN TO SENIOR INSTRUMENTATION ENGINEER WITH PT SHE DENIES ANY QUESTIONS
[2025-04-22 14:16] VITALS: BP 107/57
--- NOTE | 2025-04-22 14:44 | NUR ---
PT ASSISTED TO DRESS AND GATHER PERSONAL ITEMS FOR DC. WAITING ON HER RIDE NOW
[2025-04-22 14:47] VITALS: BP 107/57
== END 2025-04-22 15:55 | disposition home or self-care (01) | DRG 372 ==
LOC: ED 09:28 → MS 17:57 → CCU 17:57 → MS 04-18 11:00
PROVIDERS: Emergency Medicine; Family Medicine; Internal Medicine; ADMIT Student in an Organized Health Care Education/Training Program; ATTEND Student in an Organized Health Care Education/Training Program
PROC: 0T9B70Z Drainage of Bladder with Drainage Device, Via Natural or Artificial Opening (ICD-10-PCS; principal; 2025-04-11)
PROC: 3E03329 Introduction of Other Anti-infective into Peripheral Vein, Percutaneous Approach (ICD-10-PCS; 2025-04-11)
DX: A04.72 Enterocolitis due to Clostridium difficile, not specified as recurrent (principal); E87.20 Acidosis, unspecified; M00.9 Pyogenic arthritis, unspecified; E87.8 Other disorders of electrolyte and fluid balance, not elsewhere classified; E87.6 Hypokalemia; D72.829 Elevated white blood cell count, unspecified; F19.10 Other psychoactive substance abuse, uncomplicated; Z86.19 Personal history of other infectious and parasitic diseases; Z79.891 Long term (current) use of opiate analgesic; Z90.49 Acquired absence of other specified parts of digestive tract; Z79.899 Other long term (current) drug therapy; Z87.81 Personal history of (healed) traumatic fracture
CPT/HCPCS: 36415; 51702; 71260; 74019; 74177; 80048; 80053; 81001; 83605; 83690; 83735; 85025; 85060; 85610; 85730; 87040; 87045; 87046; 87088; 87324; 87502; 97116; 97161; 97166; 97530; 97535; A9270; J0780; J0878; J1171; J1938; J2270; J2405; J2470; J2543; J3475; J3480; J3490; J7030; J7040; J7060; J7070; J7121; P9047; Q9967

== ENCOUNTER 2025-04-27 09:46 | Emergency (ER) | payer OTHER ==
[~2025-04-27] VITALS: Ht 160 cm; Wt 67.4 kg
[~2025-04-27 09:46] MED LIST changes: +BENZONATATE200 MG PO; +CEFDINIR300 MG PO; +CULTURELLE1 EACH PO; +METRONIDAZOLE250 MG PO; +OXYCODONE HCL5 M3 PO; +VANCOMYCIN HCL125 MG PO
--- OUTSIDE RECORDS SUMMARY | 2025-04-27 09:53 | XMS ---
PreManage Notification: CATRACHO MARTIN Security Certified Home Health Aide Events No recent Security Events currently on file CRITERIA MET - [facility] - 2 Visits in 30 Days - [facility] - 3 Facilities in 90 Days CARE PROVIDERS -, [facility] Dentist: Drum Maker [facility] PHONE: [phone] -Luís- Dentist: Drum Maker [facility] PHONE: [phone] DEBORAH RIOS Nurse Practitioner: Acute Care Current PHONE: [phone] ELSA TUTTLE Nurse Practitioner: Family Current DEBORAH Blanco PHONE: Unknown SRINIVAS TRAORE Nurse Practitioner: Gerontology Current PHONE: Unknown STEPHY OLSON Nurse Practitioner: Family Current PHONE: [phone] SHO VASQUEZ Internal Medicine Current PHONE: Unknown [facility]Center: [facility] Current [facility] \F\ [place] (FQ) <UNAVAIL> PHONE: [phone] [facility] has no Care Guidelines for this patient. E.D. VISIT COUNT (12 MO.) [address] TOTAL 5 NOTE: Visits indicate total known visits. ED/UCC VISIT TRACKING (12 MO.) 04/27/2025 09:47 [facility] TYPE: Emergency COMPLAINT: - ABDOMINAL PAIN 04/11/2025 09:30 [facility] TYPE: Emergency COMPLAINT: - ABDOMINAL PAIN 02/26/2025 10:54 [facility] TYPE: Emergency DIAGNOSES: - Acute cystitis with hematuria - Pain in unspecified joint - Systemic inflammatory response syndrome (SIRS) of non-infectious origin without acute organ dysfunction - Unspecified abdominal pain - Arm Pain 02/26/2025 02:48 [facility] TYPE: Emergency COMPLAINT: - LT ARM PAIN DIAGNOSES: - Cellulitis of right upper limb - Pain in right arm 02/25/2025 08:25 [facility] TYPE: Emergency DIAGNOSES: - Pain in right shoulder - NUMBNESS INPATIENT VISIT TRACKING (12 MO.) 04/11/2025 17:57 [facility] TYPE: Medical Surgical COMPLAINT: - COLITIS DIAGNOSES: - Acidosis, unspecified - Acidosis, unspecified - Acquired absence of other specified parts of digestive tract - Acquired absence of other specified parts of digestive tract - Elevated white blood cell count, unspecified - Elevated white blood cell count, unspecified - Enterocolitis due to Clostridium difficile, not specified as recurrent - Enterocolitis due to Clostridium difficile, not specified as recurrent - Hypokalemia - Hypokalemia - USP (current) use of opiate analgesic - exterminator helper (current) use of opiate analgesic - Other disorders of electrolyte and fluid balance, not elsewhere classified - Other disorders of electrolyte and fluid balance, not elsewhere classified - Other care home (current) drug therapy - Other terminal carman (current) drug therapy - Other psychoactive substance abuse, uncomplicated - Other psychoactive substance abuse, uncomplicated - Personal history of (healed) traumatic fracture - Personal history of (healed) traumatic fracture - Personal history of other infectious and parasitic diseases - Personal history of other infectious and parasitic diseases - Pyogenic arthritis, unspecified - Pyogenic arthritis, unspecified - Unspecified abdominal pain 03[facility] DIAGNOSES: - Acute cystitis with hematuria - Pain in unspecified joint - Systemic inflammatory response syndrome (SIRS) of non-infectious origin without acute organ dysfunction - Unspecified abdominal pain 02/26/2025 10:54 [facility] TYPE: Internal Medicine DIAGNOSES: - Acute [...] - Thrombocytopenia, unspecified - Unspecified abdominal pain [email or web address]
[2025-04-27] MEDS ORDERED: SODIUM CHLORIDE 0.9% 1,000 ML IV ONE (10:15)
[2025-04-27 10:20] LABS: BASOPHILS 1.0 % (0.1-1.2); EOSINOPHILS 2.2 % (0.7-5.8); LYMPHOCYTES 21.3 % (19.3-51.7); MCH 31.8 PG (25.6-32.2); MCHC 33.0 g/dL (32.2-35.5); MCV 96.3 fL (79.4-94.8); MONOCYTES 13.7 % (4.7-12.5); NEUTROPHILS 61.6 % (34.0-71.1); RBC 3.55 M/uL (3.93-5.22)
[2025-04-27 10:37] LABS: ALT (SGPT) 5.0 U/L (14-59); AST (SGOT) 15.0 U/L (15-37); GLOMERULAR FILTRATION RATE,EST 113.0 mL/min (>60); PROTEIN, TOTAL 5.1 g/dL (6.4-8.2); UREA NITROGEN 3.0 mg/dL (7-18)
[2025-04-27] MEDS ORDERED: POTASSIUM CHLORIDE 10 MEQ TABCR PO ONE (11:15)
[2025-04-27] MEDS ORDERED: POTASSIUM CHLORIDE 10 MEQ/100 ML BAG IV SCH (11:15)
[2025-04-27] MEDS ORDERED: ONDANSETRON ODT8 MG PO (13:55)
[2025-04-27] MEDS ORDERED: POTASSIUM CHLO20 ME2 PO (13:55)
[2025-04-27 15:01] VITALS: BP 120/61
== END 2025-04-27 14:54 | disposition home or self-care (01) ==
LOC: ED 09:46
PROVIDERS: Emergency Medicine
DX: K52.9 Noninfective gastroenteritis and colitis, unspecified (principal); E87.6 Hypokalemia
CPT/HCPCS: 36415; 80053; 83690; 83735; 85025; 96361; 96365; 96366; 99284-25; A9270; J3480; J7030